=== PATIENT | male | born 1950 | race Caucasian/White ===

== ENCOUNTER → 2016-07-26 | Outpatient (CLI) | payer OTHER, BC ==
[~2016-07-26] MED LIST: ASPI81TA28 PO; CIPR1TAB10 PO; DOCU-94 PO; DVN/160 PO; OXYC7.5T65 PO; SIMV10TA2 PO; TAMS0.4C38 PO
[2016-07-26 12:36] LABS: ALT/SGPT 32 U/L (12-78); AST/SGOT 19 U/L (15-37); BLOOD UREA NITROGEN 15 mg/dl (7-18); BUN/CREATININE RATIO 14.9 (10-20); CALCIUM 8.9 mg/dl (8.5-10.1); CARBON DIOXIDE 31 mmol/L (21-32); CHLORIDE 108 mmol/L (98-107); CREATININE 0.99 mg/dl (0.60-1.40); GLUCOSE 97 mg/dl (70-99); POTASSIUM 4.4 mmol/L (3.5-5.1); SODIUM 144 mmol/L (136-145)
[2016-07-26 12:39] LABS: ALB/GLOB RATIO 1.2 (0.9-2); ALKALINE PHOSPHATASE 57 U/L (45-117); CHOLESTEROL 120 mg/dl (0-200); CHOLESTEROL/HDL RATIO 2.7; HDL CHOLESTEROL 45 mg/dl; LDL CHOLESTEROL CALCULATED 56 mg/dl; TRIGLYCERIDES 97 mg/dl (0-150); VERY LOW DENSITY LIPOPROT CALC 19 mg/dl
== END | disposition home or self-care (01) ==
LOC: C.LAB1850 10:35
PROVIDERS: ATTEND Family Medicine
DX: I10 Essential (primary) hypertension (principal); E78.00 Pure hypercholesterolemia, unspecified

== ENCOUNTER → 2017-01-08 | Outpatient (CLI) | payer OTHER, BC ==
[~2017-01-08] MED LIST changes: -CIPR1TAB10 PO; -DOCU-94 PO; -OXYC7.5T65 PO
== END | disposition home or self-care (01) ==
LOC: C.LAB1850 10:39
PROVIDERS: ATTEND Urology
DX: R97.20 Elevated prostate specific antigen [PSA] (principal); R07.89 Other chest pain

== ENCOUNTER 2017-01-14 11:18 | Inpatient (IN) | payer OTHER, BC ==
[~2017-01-14] VITALS: Ht 167.6 cm; Wt 81.1 kg
--- NOTE | 2017-01-14 12:07 | EMERGENCY ROOM VISIT NOTE ---
History Report prepared by Luis: Patricia Maki Under the Supervision of: Dr. Zeeshan Dang M.D. First contact with patient: 11:57 Chief Complaint: URINARY SYMPTOMS Stated Complaint: BLOOD IN URINE Nursing Triage Summary: pt reports noted blood in urine starting this AM with feeling of "fullnes " like [place] to empty bladder History of Present Illness The patient is a 66 year old male who presents to the Emergency Room with complaints of worsening urinary symptoms for the past 12 hours. The patient states that he initially developed some difficulty urinating around midnight. Around 4am he developed some hematuria. He passed a few small, round things in his stream prior to the hematuria starting. He states that these symptoms have significantly worsened. He reports increased urinary frequency and is now urinating every 15-20 minutes. His urine is bright red. The patient reports some pain and burning with urination. He rates his pain as a 4/10 in severity. He denies feeling full or distended. The patient denies fevers, chills, abdominal pain, and flank pain. He has never experienced symptoms like this before. He denies any history of UTIs or prostate infections. He does have an enlarged prostate. He had a normal biopsy last year. Source of History: patient Onset: 12 hours ago Position: other (urinary) Symptom Intensity: 4/10 Quality: other (hematuria) Timing: worsening Modifying Factors (Worsening): urination Associated Symptoms: No fevers, No chills, No abdominal pain Review of Systems All systems have been listed, reviewed, and are negative other than those previously mentioned. Please see Additional Medical History Sheet. Past Medical & Surgical Medical Problems: (1) Hematuria (2) Hypertension Family History Cancer Diabetes mellitus Heart disease Hypertension Social History Smoking Status: Never Smoker Smokeless Tobacco Use: No Alcohol Use: none Marital Status: Housing Status: lives with significant other Occupation Status: retired Current/Historical Medications Scheduled Aspirin (Aspirin Ec), 81 MG PO QPM Simvastatin (Zocor), 10 MG PO QPM Tamsulosin Hcl (Flomax), 0.4 MG PO after lunch Valsartan (Diovan), 160 MG PO QAM Allergies Coded Allergies: No Known Allergies (Verified , 01/14/17) Physical Exam Vital Signs Date Time Temp Pulse Resp B/P (MAP) Pulse Ox O2 Delivery O2 Flow Rate FiO2 01/14/17 16:28 58 145/79 97 Room Air 01/14/17 14:26 61 18 145/76 97 Room Air 01/14/17 12:49 66 18 152/79 96 Room Air 01/14/17 11:23 36.9 82 18 178/88 97 Room Air Physical Exam GENERAL: Patient awake, alert, oriented x 3. Patient follows commands. Patient appears to be in minimal distress. Patient does not appear toxic. Patient is adequately hydrated and well-nourished. SKIN: No erythema, pallor, cyanosis or rash HEENT: Normal head, pupils equal, reactive to light and accommodation. LUNGS: Clear to auscultation. No wheezes, no rales, no rhonchi. HEART: No murmurs. No gallops. No rubs ABDOMEN: No masses, no rebound, no hepatomegaly or splenomegaly. : Uncircumcised male, small amount of blood on his underwear. EXTREMITIES: No signs of trauma or infection NEUROLOGIC: Cranial nerves II-XII within normal limits. No gross motor sensory function deficits. Medical Decision & Procedures ER Provider Diagnostic Interpretation: Radiology results as stated below per my review and radiologist interpretation: ABD/PELVIS COMBO CLINICAL HISTORY: 66 years-old Male presenting with bladder stones, hematuria, NO oral contrast. TECHNIQUE: Multidetector CT of the abdomen and pelvis was performed before and after the administration of intravenous contrast. IV contrast: 93 mL of Optiray 320. A dose lowering technique was used consistent with the principles of ALARA (as low as reasonably achievable). COMPARISON: None. CT DOSE (mGy.cm): The estimated cumulative dose is 853.57 mGy.cm. FINDINGS: Manager Of Radiology topogram: Unremarkable. Lung bases: Minimal dependent changes likely atelectasis. Few tiny nodular opacities minimally in the right lower lobe may relate to atelectasis. Mild multichamber enlargement of the heart. No pericardial or pleural effusion. Liver: Normal morphology. No liver lesion. Patent hepatic vasculature. Biliary: No intrahepatic or extrahepatic biliary ductal dilatation. Normal gallbladder. Pancreas: Normal. Spleen: Normal. Adrenal glands: Normal. Kidneys and ureters: Large mass within the interpolar region of the right kidney measuring 8.6 x 6.4 cm in maximal axial dimensions. This displaces the collecting system and occupies the majority of the lower pole. This does not appear to infiltrate the perinephric fat. Allowing for the single phase of contrast, no gross evidence of vascular invasion. The mass effect exerted upon the right renal collecting system appears to somewhat delayed filling of the right ureter. The right ureter is normal in course and caliber. The left kidney is normal in appearance as is the left renal collecting system and left ureter. Bladder: Although under distended, the bladder is mildly thick-walled and irregular. Suggestion of a prominent diverticulum at the anterior dome. Pelvic organs: Prostate enlargement likely secondary to benign prostatic hyperplasia. Bowel: Diverticulosis of the descending and sigmoid colon. No bowel obstruction. Moderate size paraesophageal hernia. 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 No free intraperitoneal gas or fluid. Lymph nodes: No pathologically enlarged lymph nodes in the abdomen or pelvis. No prominent nodes in the region of the right renal hilum. Scattered subcentimeter small bowel mesenteric lymph nodes as mentioned. Vasculature: Atherosclerosis of the normal caliber abdominal aorta. IVC patent. Abdominal wall: Postsurgical changes of left inguinal hernia repair. Musculoskeletal: Sclerotic lesion in the right ischium and right femoral head likely bone islands. Degenerative changes of the spine noted. No destructive osseous lesion is apparent. IMPRESSION: 1. 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 Primary differential considerations include renal cell carcinoma versus transitional cell carcinoma. A urothelial primary malignancy such as TCC is favored given the displacement of the collecting system. No lymphadenopathy or evidence of metastatic disease in abdomen or pelvis. 2. Bladder wall irregularity with possible bladder diverticulum. Cystoscopy could be considered as clinically warranted. 3. Prostatomegaly. Electronically signed by: Denver Robert M.D. 01/14/2017 3:09 PM Dictated Date/Time: 01/14/2017 2:59 PM Laboratory Results 01/14/17 12:23 01/14/17 12:23 Test 01/14/17 12:23 01/14/17 13:05 Red Blood Count 5.17 M/uL (4.7-6.1) Mean Corpuscular Volume 87.8 fL (80-100) Mean Corpuscular Hemoglobin 29.4 pg (25-34) Mean Corpuscular Hemoglobin Concent 33.5 g/dl (32-36) RDW Standard Deviation 43.1 fL (36.4-46.3) RDW Coefficient of Variation 13.4 % (11.5-14.5) Mean Platelet Volume 10.2 fL (7.4-10.4) Anion Gap 6.0 mmol/L (3-11) Est Creatinine Clear Calc Drug Dose 71.7 ml/min Estimated GFR () 89.9 Estimated GFR (Non- 77.5 BUN/Creatinine Ratio 13.9 (10-20) Calcium Level 8.8 mg/dl (8.5-10.1) Urine Color RED Urine Appearance CLOUDY (CLEAR) Urine pH 7.5 (4.5-7.5) Urine Specific [place] 1.020 (1.000-1.030) Urine Protein 2+ (NEG) Urine Glucose (UA) NEG (NEG) Urine Ketones NEG (NEG) Urine Occult Blood 3+ (NEG) Urine Nitrite NEG (NEG) Urine Bilirubin NEG (NEG) Urine Urobilinogen NEG (NEG) Urine Leukocyte Esterase NEG (NEG) Urine RBC >30 /hpf (0-4) Urine WBC >30 /hpf (0-5) Urine Epithelial Cells 0-5 /lpf (0-5) Urine Bacteria NEG (NEG) Laboratory results as stated above per my review. Medications Administered Medications (Trade) Dose Ordered Sig/[place] Route Start Time Stop Time Status Last Admin Dose Admin Sodium Chloride 1,000 ml @ 300 mls/hr Q3H20M IV 01/14/17 13:15 01/14/17 17:19 DC 01/14/17 13:24 300 MLS/HR ED Course 1155: Past medical records reviewed. The patient was evaluated in room A4B. A complete history and physical examination was performed. 1310: I spoke with Dr. Dela Cruz of urology. We discussed the patient's case. 1315: Sodium Chloride 1000 ml @ 300 mls/hr IV. 1515: I spoke with Dr. Dela Cruz of urology. We discussed the patient's results. He recommended that the patient stay in the hospital. 1533: I reassessed the patient at this time. He is resting comfortably. I offered him pain medication, but the patient declined. I discussed the results and treatment plan with the patient. I answered all pertaining questions that he had. He expressed understanding and verbalized agreement. 1537: Sodium Chloride 1000 ml @ 300 mls/hr IV. 1540: Discussed the patient's case with Dr. Duran. The patient will be evaluated by the [facility] for further management. Medical Decision Nurses notes reviewed. Medical history sheet reviewed. Differential diagnosis includes but is not limited to: urinary retention, bladder stones, UTI, prostatitis. Multiple labs, urinalysis and imaging were obtained. Urinalysis reveals significant blood. CT reveals a large renal mass. I discussed care with the patient, his , the urologist and with the hospitalist. The patient will require further evaluation in the hospital and may require surgery within the next couple of days. The patient was offered pain medication but he declined. He was given IV fluids. He was kept nothing by mouth. Medication Reconcilliation Current Medication List: was personally reviewed by me Blood Pressure Screening Patient's blood pressure: Elevated blood pressure Blood pressure disposition: Elevated BP felt to be situational Consults Time Called: 1307 Consulting Physician: Dr. Dela Cruz Returned Call: [address] Dela Cruz of urology. We discussed the patient's case. Additional Consults: Time Called: 1511 Consulted Physician: Dr. Dela Cruz Returned Call: 1515 Additional Comments: I spoke with Dr. Dela Cruz of urology. We discussed the patient's results. He recommended that the patient stay in the hospital. Time Called: 1538 Consulted Physician: Dr. Duran Returned Call: 1540 Additional Comments: I discussed the patient's case with Dr. Duran. The patient will be evaluated by the [facility] for further management. Impression Primary Impression: Renal mass Additional Impression: Hematuria Scribe Attestation The scribe's documentation has been prepared under my direction and personally reviewed by me in its entirety. I confirm that the note above accurately reflects all work, treatment, procedures, and medical decision making performed by me. Departure Information Dispostion Being Evaluated By Hospitalist Referrals Noemy Santana M.D. (PCP) Patient Instructions My [facility] Problem Qualifiers
[2017-01-14 12:56] LABS: HEMATOCRIT 45.4 % (42-52); MEAN CELL VOLUME 87.8 fL (80-100); MEAN CORPUSCULAR HEMOGLOBIN 29.4 pg (25-34); MEAN CORPUSCULAR HGB CONC 33.5 g/dl (32-36); MEAN PLATELET VOLUME 10.2 fL (7.4-10.4); PLATELET COUNT 231 K/uL (130-400); RED BLOOD COUNT 5.17 M/uL (4.7-6.1); WHITE BLOOD COUNT 5.27 K/uL (4.8-10.8)
[2017-01-14] MEDS ORDERED: SODIUM CHLORIDE 0.9% 1000ML 1,000 ML IV SCH (13:15)
[2017-01-14 13:26] LABS: MANUAL MICROSCOPIC REQUIRED? YES; URINE APPEARANCE CLOUDY (CLEAR); URINE BILIRUBIN NEG (NEG); URINE COLOR RED; URINE NITRITE NEG (NEG); URINE PH 7.5 (4.5-7.5); UROBILINOGEN NEG (NEG)
[2017-01-14 13:29] LABS: REVIEW REQ? NO
[2017-01-14 13:30] LABS: SULFASALICYLIC ACID POS (NEG)
[2017-01-14] MEDS ORDERED: OPTIRAY 320 IV PRN (13:30)
[2017-01-14 13:34] LABS: URINE RBC >30 /hpf (0-4)
[2017-01-14 13:35] LABS: URINE BACTERIA NEG (NEG)
[2017-01-14 13:36] LABS: URINE WBC >30 /hpf (0-5); ZZUR CULT IF INDIC CLEAN CATCH YES
[2017-01-14 13:40] LABS: BUN/CREATININE RATIO 13.9 (10-20); CALCIUM 8.8 mg/dl (8.5-10.1); POTASSIUM 3.9 mmol/L (3.5-5.1)
--- NOTE | 2017-01-14 15:10 | DIAGNOSTIC IMAGING REPORT ---
ABD/PELVIS COMBO CLINICAL HISTORY: 66 years-old Male presenting with bladder stones, hematuria, NO oral contrast. TECHNIQUE: Multidetector CT of the abdomen and pelvis was performed before and after the administration of intravenous contrast. IV contrast: 93 mL of Optiray 320. A dose lowering technique was used consistent with the principles of ALARA (as low as reasonably achievable). COMPARISON: None. CT DOSE (mGy.cm): The estimated cumulative dose is 853.57 mGy.cm. FINDINGS: Transmission Repairer topogram: Unremarkable. Lung bases: Minimal dependent changes likely atelectasis. Few tiny nodular opacities minimally in the right lower lobe may relate to atelectasis. Mild multichamber enlargement of the heart. No pericardial or pleural effusion. Liver: Normal morphology. No liver lesion. Patent hepatic vasculature. Biliary: No intrahepatic or extrahepatic biliary ductal dilatation. Normal gallbladder. Pancreas: Normal. Spleen: Normal. Adrenal glands: Normal. Kidneys and ureters: Large mass within the interpolar region of the right kidney measuring 8.6 x 6.4 cm in maximal axial dimensions. This displaces the collecting system and occupies the majority of the lower pole. This does not appear to infiltrate the perinephric fat. Allowing for the single phase of contrast, no gross evidence of vascular invasion. The mass effect exerted upon the right renal collecting system appears to somewhat delayed filling of the right ureter. The right ureter is normal in course and caliber. The left kidney is normal in appearance as is the left renal collecting system and left ureter. Bladder: Although under distended, the bladder is mildly thick-walled and irregular. Suggestion of a prominent diverticulum at the anterior dome. Pelvic organs: Prostate enlargement likely secondary to benign prostatic hyperplasia. Bowel: Diverticulosis of the descending and sigmoid colon. No bowel obstruction. Moderate size paraesophageal hernia. 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 No free intraperitoneal gas or fluid. Lymph nodes: No pathologically enlarged lymph nodes in the abdomen or pelvis. No prominent nodes in the region of the right renal hilum. Scattered subcentimeter small bowel mesenteric lymph nodes as mentioned. Vasculature: Atherosclerosis of the normal caliber abdominal aorta. IVC patent. Abdominal wall: Postsurgical changes of left inguinal hernia repair. Musculoskeletal: Sclerotic lesion in the right ischium and right femoral head likely bone islands. Degenerative changes of the spine noted. No destructive osseous lesion is apparent. IMPRESSION: 1. 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 Primary differential considerations include renal cell carcinoma versus transitional cell carcinoma. A urothelial primary malignancy such as TCC is favored given the displacement of the collecting system. No lymphadenopathy or evidence of metastatic disease in abdomen or pelvis. 2. Bladder wall irregularity with possible bladder diverticulum. Cystoscopy could be considered as clinically warranted. 3. Prostatomegaly. Electronically signed by: Denver Robert M.D. 01/14/2017 3:09 PM Dictated Date/Time: 01/14/2017 2:59 PM
[2017-01-14] MEDS ORDERED: SODIUM CHLORIDE 0.9% 1000ML 1,000 ML IV STA (15:37)
[2017-01-14] MEDS ORDERED: ACETAMINOPHEN 325 MG TAB PO PRN (16:30)
[2017-01-14] MEDS ORDERED: MAGNESIUM HYDROXIDE SUSP 30 ML UDC PO PRN (16:30)
[2017-01-14] MEDS ORDERED: ONDANSETRON INJ 2 MG/ML 2 ML VIAL IV PRN (16:30)
--- NOTE | 2017-01-14 16:38 | History and Physical ---
History & Physical Date & Time of Service: Jan 14, 2017 at 16:29 Chief Complaint: Blood In Urine Primary Care Physician: Noemy Santana M.D. History of Present Illness Source: patient 66 y/o M c/o hematuria. Pt states he has been having the sensation of a "blockage" when he tried to urinate on and off for a few weeks. Initially, he would have this sensation for a 1/2 day or so and then not again for a few days , however it has been pretty much a regular occurrence with all urination over the last few days. He woke up to urinate around 4am this AM and noted nazia blood in his urine, which has never happened before. He also noted a sharp pain that becomes an ache with urination only. He feels fine between urination times, however over the course of the day he finds he has had to urinate about Q15-20 minutes. He has no abd or pelvic or flank pain. Pt has no hx of kidney stone, but initially thought that was what was going on based on how he was feeling. Pt states that otherwise he feels fine. Pt denies fever, SOB, chest pain, n/v/c /d, LE pain or swelling. He does note the for the last six months or so he has had sudden bowel movements with hot/warm foods. He states he eats a cold breakfast and a sandwich for lunch and has no issue, but with dinner he notes that after he eats he must have a bowel movement shortly after. If they are at a restaurant, it is before they even leave. Stools are sometimes diarrhea but usually just "loose". He states his appetite is WNL and no weight loss or gain. Pt does take aspirin 81mg daily, but last dose was 10/7 AM. Past Medical/Surgical History Medical Problems: (1) Hypertension Status: Chronic Hyperlipidemia BPH Family History Family history was reviewed; no changes noted. Father from CHF Mother from ovarian ca with mets Social History Smoking Status: Never Smoker Smokeless Tobacco Use: No Alcohol Use: none Drug Use: none Marital Status: Occupational Status: retired Allergies Coded Allergies: No Known Allergies (Verified , 01/14/17) Home Medications Scheduled Aspirin (Aspirin Ec), 81 MG PO QPM Simvastatin (Zocor), 10 MG PO QPM Tamsulosin Hcl (Flomax), 0.4 MG PO after lunch Valsartan (Diovan), 160 MG PO QAM Review of Systems Pertinent positives and negatives reviewed in HPI--all others negative Physical Exam Vital Signs Date Time Temp Pulse Resp B/P (MAP) Pulse Ox O2 Delivery O2 Flow Rate FiO2 01/14/17 14:26 61 18 145/76 97 Room Air 01/14/17 12:49 66 18 152/79 96 Room Air 01/14/17 11:23 36.9 82 18 178/88 97 Room Air General Appearance: WD/WN, no apparent distress Head: normocephalic, atraumatic Eyes: normal inspection, EOMI ENT: hearing grossly normal Neck: supple Respiratory/Chest: normal breath sounds, no respiratory distress Cardiovascular: regular rate, rhythm, no edema Abdomen/GI: non tender, soft, + distended Extremities/Musculoskelatal: no calf tenderness, no pedal edema Neurologic/Psych: alert, normal mood/affect, oriented x 3 Skin: normal color, warm/dry Diagnostics Laboratory Results Results Past 24 Hours Test 01/14/17 12:23 01/14/17 13:05 Range/Units White Blood Count 5.27 4.8-10.8 K/uL Red Blood Count 5.17 4.7-6.1 M/uL Hemoglobin 15.2 14.0-18.0 g/dL Hematocrit 45.4 42-52 % Mean Corpuscular Volume 87.8 80-100 fL Mean Corpuscular Hemoglobin 29.4 25-34 pg Mean Corpuscular Hemoglobin Concent 33.5 32-36 g/dl RDW Standard Deviation 43.1 36.4-46.3 fL RDW Coefficient of Variation 13.4 11.5-14.5 % Platelet Count 231 130-400 K/uL Mean Platelet Volume 10.2 7.4-10.4 fL Sodium Level 144 136-145 mmol/L Potassium Level 3.9 3.5-5.1 mmol/L Chloride Level 110 98-107 mmol/L Carbon Dioxide Level 28 21-32 mmol/L Anion Gap 6.0 3-11 mmol/L Blood Urea Nitrogen 14 7-18 mg/dl Creatinine 1.00 0.60-1.40 mg/dl Est Creatinine Clear Calc Drug Dose 71.7 ml/min Estimated GFR () 89.9 Estimated GFR (Non- 77.5 BUN/Creatinine Ratio 13.9 10-20 Random Glucose 114 70-99 mg/dl Calcium Level 8.8 8.5-10.1 mg/dl Urine Color RED Urine Appearance CLOUDY CLEAR Urine pH 7.5 4.5-7.5 Urine Specific [place] 1.020 1.000-1.030 Urine Protein 2+ NEG Urine Glucose (UA) NEG NEG Urine Ketones NEG NEG Urine Occult Blood 3+ NEG Urine Nitrite NEG NEG Urine Bilirubin NEG NEG Urine Urobilinogen NEG NEG Urine Leukocyte Esterase NEG NEG Urine RBC >30 0-4 /hpf Urine WBC >30 0-5 /hpf Urine Epithelial Cells 0-5 0-5 /lpf Urine Bacteria NEG NEG Microbiology Results 01/14/17 Urine Culture, Received Pending Diagnostic Radiology CT AP: 1. 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 Primary differential considerations include renal cell carcinoma versus transitional cell carcinoma. A urothelial primary malignancy such as TCC is favored given the displacement of the collecting system. No lymphadenopathy or evidence of metastatic disease in abdomen or pelvis. 2. Bladder wall irregularity with possible bladder diverticulum. Cystoscopy could be considered as clinically warranted. 3. Prostatomegaly. Impression Assessment and Plan 66 y/o M who was admitted on 01/14 for gross hematuria Gross hematuria/dysuria: UA neg for UTI, but with 3+ blood CT AP as noted with concerning mass Dr. Dela Cruz in to see pt in the ED and planning for OR Urine cx pending CBC, PRP WNL Hb 15.2 HTN: stable, continue home meds CAD prevention: holding aspirin Last dose was 10/7 AM BPH: holding flomax given increase in urinary frequency Hyperlipidemia: continue home meds Other: Full code NPO for possible OR per urology SCDs for DVT proph given hematuria Level of Care Med/Surg Resuscitation Status FULL RESUSCITATION VTE Prophylaxis VTE Risk Assessment Done? Y/N: Yes Risk Level: Low
[2017-01-14 17:16] VITALS: BP 153/87; PULSE 72; TEMP 36.6; O2SAT 94
[2017-01-14] MEDS: D5W AND 1/2NSS + 20MEQ KCL 1,000 ML IV SCH (17:30)
[2017-01-14] MEDS ORDERED: PHENAZOPYRIDINE HCL 200 MG TAB PO ONE ×2 (18:30→21:00)
[2017-01-14 18:57] VITALS: BP 153/87; PULSE 72; TEMP 36.6; Ht 167.6 cm; Wt 81.1 kg
[2017-01-14] MEDS ORDERED: NURSING DECISION MEDICATION ORDER SCH (19:00)
--- NOTE | 2017-01-14 19:29 | DIAGNOSTIC IMAGING REPORT ---
CHEST 2 VIEWS ROUTINE CLINICAL HISTORY: 66 years-old Male presenting with preop assessment. TECHNIQUE: PA and lateral views of the chest were obtained. COMPARISON: None. FINDINGS: Cardiomediastinal silhouette normal. Lungs and pleural spaces clear. Osseous structures normal. Upper abdomen normal. IMPRESSION: 1. No acute cardiopulmonary disease. Electronically signed by: Denver Robert M.D. 01/14/2017 7:28 PM Dictated Date/Time: 01/14/2017 7:27 PM
[2017-01-14] MEDS ORDERED: NURSING VERBAL MED ORDER ONE (19:45)
[2017-01-14] MEDS: SIMVASTATIN 10 MG TAB PO SCH (21:41)
[2017-01-14] MEDS: CIPROFLOXACIN / D5W 400 MG in PREMIXED IN D5W 200 ML IV SCH (21:42)
--- NOTE | 2017-01-14 23:33 | GENITOURINARY CONSULTATION ---
DATE OF CONSULTATION: 01/14/2017 REASON FOR THE CONSULT: Gross hematuria and right renal mass. HISTORY OF PRESENTATION: The patient is a 66-year-old male who called early this morning saying that he at midnight began to have some difficulty with urinary frequency. This frequency was initially clear urine but then turned into hematuria. He was voiding every 15 minutes throughout the night, presented to the Emergency Room at my recommendation. There, an attempt was made to catheterize him even though he had only a small amount on bladder scan in his bladder, it was unsuccessful by the nurse. I went in to evaluate the patient. Because he had a small amount and seemed to be able to empty but was voiding, gross hematuria, this was sent for urinalysis. Subsequently, a CAT scan was obtained which showed a right renal mass. It is unclear, because it is medial, whether this is a renal cell or transitional cell, but given the size of it, it seems unlikely that it would be a transitional cell without previously having caused hematuria. This appears to be 8-9 cm in size. There are bladder stones and the patient had also said that he had passed some bladder stones over the last few weeks. He does have a history of BPH and has been followed by Dr. Moise in the past. He continues to have hematuria. At my recommendation, he was admitted to the hospital by the hospitalist and I placed him on a schedule tomorrow for cystoscopy, possible transurethral incision of his stricture, possible retrograde and to see whether or not fluid might be obtained from the right renal pelvis to rule out or rule in transitional cell cancer. PAST MEDICAL HISTORY: Significant for hypertension, hyperlipidemia and BPH. SOCIAL HISTORY: The patient has never been a smoker, does not use alcohol. ALLERGIES: He has no known drug allergies. MEDICATIONS: Include aspirin, Zocor, Flomax and Diovan. REVIEW OF SYSTEMS: Essentially negative. The positives were reviewed in the history and physical. The patient denies any flank pain. He did have previous flecks of hematuria in the past. PHYSICAL EXAMINATION: GENERAL: The patient is a well-developed male in minimal distress. HEENT: Unremarkable. NECK: Supple without obvious lymphadenopathy. LUNGS: He has normal breath sounds. No obvious respiratory distress. CARDIOVASCULAR: He has no evidence of pedal edema. He has a regular rate and rhythm. ABDOMEN: Nontender. EXTREMITIES: Unremarkable without evidence of calf tenderness. NEUROLOGIC: He is alert and oriented without any focal sensory deficits. SKIN: Dry. LABORATORY DATA: Grossly bloody urine with some white cells in it, no evidence of bacteria. White blood cell count is normal at 5.7, hematocrit is 45.4. Creatinine was within normal limits at 1. Again, CT scan did show bladder stones and enlarged prostate, a somewhat irregular bladder but no obvious mass, an 8-9 cm right renal mass that was medial and distorting the collecting system, in my opinion probably renal cell carcinoma but cannot rule out renal transitional cell cancer. ASSESSMENT: Right renal mass, gross hematuria with voiding difficulty and bladder stones, possible stricture given the difficulty with catheterization attempt. PLAN: Admission for workup in the morning with cystoscopy, possible incision of stricture, removal of bladder stones and right retrograde. He will need to ultimately be evaluated for a right nephrectomy. Chest x-ray and preop EKG are pending. A consent for the procedure was obtained. All questions were answered and the situation including the renal mass was explained at length to the patient. Over 45 minutes were spent in total discussing the situation with the patient.
[2017-01-14 23:36] VITALS: BP 143/75; PULSE 64; TEMP 36.7; O2SAT 95
[2017-01-15] VITALS (8 sets, daily range): BP systolic 116–166; BP diastolic 67–93; PULSE 64–70; TEMP 36.4–36.9; O2SAT 94–97
[2017-01-15 05:34] LABS: HEMATOCRIT 41.2 % (42-52); MEAN CELL VOLUME 87.7 fL (80-100); MEAN CORPUSCULAR HEMOGLOBIN 28.9 pg (25-34); MEAN PLATELET VOLUME 10.2 fL (7.4-10.4); PLATELET COUNT 205 K/uL (130-400); WHITE BLOOD COUNT 6.65 K/uL (4.8-10.8)
--- NOTE | 2017-01-15 07:45 | Progress Note ---
Subjective Date of Service: Jan 15, 2017. Subjective Pt evaluation today including: conversation w/ patient, chart review, lab review 66 yo male with renal mass, bladder calculi, and gross hematuria. Pt voiding bright clarke colored urine this morning. Denies pain. H&H of 13.6 and 41.2 this morning. Drifting down from 15.2 and 45.4 yesterday. UC&S pending. Problem List Medical Problems: (1) Renal mass Status: Acute Review of Systems Constitutional: No fever, No chills Respiratory: No shortness of breath Cardiac: No chest pain Abdomen: No pain, No vomiting Male : + hematuria Objective Vital Signs Date Time Temp Pulse Resp B/P (MAP) Pulse Ox O2 Delivery O2 Flow Rate FiO2 01/15/17 07:02 36.9 65 16 155/77 (103) 95 Room Air 01/15/17 00:15 Room Air 01/14/17 23:36 36.7 64 16 143/75 (97) 95 Room Air 01/14/17 18:57 36.6 72 16 153/87 Room Air 01/14/17 18:00 Room Air 01/14/17 17:16 36.6 72 16 153/87 (109) 94 Room Air 01/14/17 17:01 58 18 145/79 97 01/14/17 16:28 58 145/79 97 Room Air 01/14/17 14:26 61 18 145/76 97 Room Air 01/14/17 12:49 66 18 152/79 96 Room Air 01/14/17 11:23 36.9 82 18 178/88 97 Room Air Physical Exam General Appearance: no apparent distress Eyes: normal inspection ENT: hearing grossly normal Neck: no JVD Respiratory/Chest: no respiratory distress, no accessory muscle use Cardiovascular: no JVD Extremities: normal inspection Neurologic/Psychiatric: alert, normal mood/affect, oriented x 3 Skin: normal color Laboratory Results Last 24 Hours Test 01/14/17 12:23 01/14/17 13:05 01/15/17 05:20 White Blood Count 5.27 K/uL 6.65 K/uL Red Blood Count 5.17 M/uL 4.70 M/uL Hemoglobin 15.2 g/dL 13.6 g/dL Hematocrit 45.4 % 41.2 % Mean Corpuscular Volume 87.8 fL 87.7 fL Mean Corpuscular Hemoglobin 29.4 pg 28.9 pg Mean Corpuscular Hemoglobin Concent 33.5 g/dl 33.0 g/dl RDW Standard Deviation 43.1 fL 43.4 fL RDW Coefficient of Variation 13.4 % 13.5 % Platelet Count 231 K/uL 205 K/uL Mean Platelet Volume 10.2 fL 10.2 fL Sodium Level 144 mmol/L Potassium Level 3.9 mmol/L Chloride Level 110 mmol/L Carbon Dioxide Level 28 mmol/L Anion Gap 6.0 mmol/L Blood Urea Nitrogen 14 mg/dl Creatinine 1.00 mg/dl Est Creatinine Clear Calc Drug Dose 71.7 ml/min Estimated GFR () 89.9 Estimated GFR (Non- 77.5 BUN/Creatinine Ratio 13.9 Random Glucose 114 mg/dl Calcium Level 8.8 mg/dl Urine Color RED Urine Appearance CLOUDY Urine pH 7.5 Urine Specific [place] 1.020 Urine Protein 2+ Urine Glucose (UA) NEG Urine Ketones NEG Urine Occult Blood 3+ Urine Nitrite NEG Urine Bilirubin NEG Urine Urobilinogen NEG Urine Leukocyte Esterase NEG Urine RBC >30 /hpf Urine WBC >30 /hpf Urine Epithelial Cells 0-5 /lpf Urine Bacteria NEG Assessment and Plan A/P: Right renal mass, gross hematuria, bladder calculi AFVSS. Pt scheduled for OR later today with Dr. Moise for a cystoscopy, possible incision of stricture, cystolithopaxy, and right retrograde to evaluate right renal mass. Risks and benefits of the procedure once again discussed. Consent obtained by Dr. Dela Cruz. Pt agrees to the procedure at this time. Will continue to follow along with primary service. Continued [facility] stay due to: other (OR planned)
--- NOTE | 2017-01-15 08:08 | Clinical Documentation Query ---
CLINICAL DOCUMENTATION QUERY 66 year old male who presents to the Emergency Room with complaints of hematuria In your clinical opinion is this patient being managed for: ( x ) Suspected Malignant Mass(Cancer) of right Kidney ( ) Not Agree ( ) Other explanation of clinical findings (Please Explain) ( ) Unable to determine (Please Define) ( ) Need to Discuss The medical record reflects the following clinical findings, treatment, and risk factors. Clinical Indicators: Hematuria. 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 Primary differential considerations include renal cell carcinoma versus transitional cell carcinoma. A urothelial primary malignancy such as TCC is favored given the displacement of the collecting system. No lymphadenopathy or evidence of metastatic disease in abdomen or pelvis. Treatment: Urology consult, Risk Factors: Age Please clarify and document your clinical opinion in the progress notes and discharge summary. Terms such as "probable", "suspected", "likely", "questionable", "possible", or "still to be ruled out" are acceptable. IF IN AGREEMENT, YOU MUST DOCUMENT ABOVE DIAGNOSTIC STATEMENT IN DAILY PROGRESS NOTES AND DISCHARGE SUMMARY. This document is not part of the patient's record. Thank You, Silas Valdovinos, ANKIT [phone]
[2017-01-15] MEDS ORDERED: EpHEDrine SULFATE INJ 50 MG/ML AMP IV PRN ×2 (08:45)
[2017-01-15] MEDS ORDERED: LABETALOL HCL IV 5 MG/ML 20ML IV PRN (08:45)
[2017-01-15] MEDS ORDERED: ONDANSETRON INJ 2 MG/ML 2 ML VIAL IV PRN (08:45)
[2017-01-15] MEDS ORDERED: FENTANYL CITRATE INJ 50 MCG/1 ML 2 ML VIAL IV PRN (08:45)
[2017-01-15] MEDS ORDERED: MEPERIDINE HCL 25 MG/ML CARP IV PRN (08:45)
[2017-01-15] MEDS ORDERED: ATROPINE SULFATE 0.1 MG/ML 5ML SYR IV PRN ×2 (08:45)
[2017-01-15] MEDS ORDERED: HYDROmorphone INJ 1 MG/ML SYR IV PRN (08:45)
[2017-01-15] MEDS ORDERED: FENTANYL CITRATE INJ 50 MCG/1 ML 2 ML VIAL ONE (08:54)
[2017-01-15] MEDS ORDERED: MIDAZOLAM HCL 1 MG/ML 2ML VIAL ONE (08:54)
[2017-01-15] MEDS: CIPROFLOXACIN / D5W 400 MG in PREMIXED IN D5W 200 ML IV SCH (08:59)
[2017-01-15] MEDS: VALSARTAN 80 MG TAB PO SCH (09:00)
--- NOTE | 2017-01-15 09:47 | History & Physical Bridge Note ---
H&P Re-Evaluation Bridge Note: I have examined the patient, reviewed the History & Physical and in the interval since the performance of the History & Physical I have noted the following changes of clinical significance: No changes noted
[2017-01-15] MEDS ORDERED: CONRAY 30% 150ML BOTTLE ONE (10:33)
[2017-01-15] MEDS ORDERED: PROPOFOL IV EMULSION 10 MG/ML 20 ML VIAL IV ONE (10:52)
[2017-01-15] MEDS ORDERED: LIDOCAINE HCL 2% 2 ML VIAL (20MG/ML) ONE (10:52)
[2017-01-15] MEDS ORDERED: EpHEDrine SULFATE 50MG/5ML SYR ONE (11:00)
[2017-01-15 11:01] LABS: BUN/CREATININE RATIO 12.1 (10-20); CALCIUM 9.6 mg/dl (8.5-10.1)
--- NOTE | 2017-01-15 11:21 | DIAGNOSTIC IMAGING REPORT ---
R KUB CLINICAL HISTORY: RT STENT PLACEMENT COMPARISON STUDY: CT scan dated 01/14/2017 FINDINGS: 42 seconds of fluoroscopic time was utilized. 2 intraoperative fluoroscopic spot images are provided for interpretation. These demonstrate a dilated deformed right-sided collecting system. The findings are consistent with the patient's known large right renal mass. IMPRESSION: Dilated deformed right renal collecting system. Electronically signed by: Harjit Charles M.D. 01/15/2017 11:19 AM Dictated Date/Time: 01/15/2017 11:18 AM
[2017-01-15] MEDS ORDERED: OXYCODONE/ACETAMINOPHEN 5-325 TAB PO PRN (11:45)
--- NOTE | 2017-01-15 11:55 | [facility] Operative Report ---
Operative Report Operative Date Jan 15, 2017. Pre-Operative Diagnosis Renal Mass; Bladder Stones Post-Operative Diagnosis Same Procedure(s) Performed Cystoscopy, cystolithalopaxy, Right retrograde and barbataged right renal pelvis Surgeon Jose Maria [employer] Service Technician Surgeon(s) none Estimated Blood Loss 0ml Findings Cystoscopic exam revealed a normal anterior urethra prostatic fossa was moderately obstructing per milliliter with an elevated median lobe bladder showed one plus trabeculation there was some adherent clot in the bladder and multiple small bladder stones there were no bladder tumors seen. Right retrograde showed a large mass distorting the collecting system Specimens a. barbataged right kidney b. bladder stones for stone analysis Drains none Anesthesia Gen. Disposition Recovery Room / PACU Indications Patient is a 76-year-old white male who was admitted through the emergency room with hematuria and bladder pain workup revealed an 8 cm right renal mass as well as multiple bladder stones. They were unable to pass a Torres on the floor. Patient is being brought down now for cystoscopy retrogrades barbotaged urine from the right kidney removal of bladder stones Description of Procedure After the induction of an adequate general anesthetic and appropriate timeout patient was placed in a dorsal lithotomy position. Lower abdomen and genitalia were prepped with Hibiclens and draped in a sterile fashion. Using a 22 Hungarian cystoscope routine cystoscopic exam was performed with the above-noted findings with the 30 and 70 lenses then a 0.03 guidewire was passed under fluoroscopic guidance up the right ureter and over this a 5 Hungarian open-ended catheter was passed up into the renal pelvis confirmed by fluoroscopy barbotage urine was obtained using normal saline. The catheter was then backed out and a right retrograde pyelogram was performed again with the above-noted findings. After completing this the catheter was removed the cystoscope was removed and a 24 Hungarian resection sheath and laser bridge were inserted most of the stones are small enough that I could irrigate them out there was one larger stone that had to be fragmented with the laser. EllHemp 4 [place] evacuator was used to remove all bladder stone fragments. The laser scope was removed and the cystoscope was again passed bladder was inspected with the 30 and 70 lenses there were no stone fragments remaining and there was no bleeding. Bladder was then drained and cystoscope and sheath removed all needle sponges and instrument counts are correct at the end of the case. Patient tolerated the procedure well and taken to the recovery room in stable condition I attest to the content of the Intraoperative Record and any orders documented therein. Any exceptions are noted below.
--- NOTE | 2017-01-15 12:08 | Anesthesiology Progress Note ---
Anesthesia Post Op Note Date & Time Jan 15, 2017 at 12:07 Vital Signs Pain Intensity: 0 Vital Signs Past 12 Hours Date Time Temp Pulse Resp B/P (MAP) Pulse Ox O2 Delivery O2 Flow Rate FiO2 01/15/17 12:02 86 15 01/15/17 12:02 87 15 96 01/15/17 12:01 142/72 01/15/17 11:57 64 15 01/15/17 11:57 65 15 99 01/15/17 11:56 127/73 01/15/17 11:52 83 16 01/15/17 11:52 85 16 98 01/15/17 11:51 137/78 01/15/17 11:47 71 18 98 01/15/17 11:47 72 18 01/15/17 11:46 128/83 01/15/17 11:42 75 21 01/15/17 11:42 75 21 99 01/15/17 11:41 142/91 01/15/17 11:38 131/80 01/15/17 11:37 36.4 83 12 131/80 98 Oxymask 10 01/15/17 11:37 87 16 97 01/15/17 11:37 83 16 01/15/17 10:13 Room Air 01/15/17 07:02 36.9 65 16 155/77 (103) 95 Room Air 01/15/17 00:15 Room Air Notes Mental Status: alert / awake / arousable, participated in evaluation Pt Amnestic to Procedure: Yes Nausea / Vomiting: adequately controlled Pain: adequately controlled Airway Patency, RR, SpO2: stable & adequate BP & HR: stable & adequate Hydration State: stable & adequate Anesthetic Complications: no major complications apparent
[2017-01-15] MEDS: D5W AND 1/2NSS + 20MEQ KCL 1,000 ML IV SCH (12:50)
--- NOTE | 2017-01-15 16:23 | Hospitalist Progress Note ---
Hospitalist Progress Note Date of Service Jan 15, 2017. (Madison Pastor ., BENNETT-C) Subjective Pt evaluation today including: conversation w/ patient, physical exam, chart review, lab review, review of inpatient medication list Pain: 8/10 lower abdominal and lower back pressure PO Intake: Tolerating PO diet Voiding: voiding difficulty (unable to void post op) Patient complains of 8/10 pressure in his lower abdomen and lower back. He states he has not been able to void since coming back from his procedure earlier today. He has been draining some blood from his urethra. The patient denies fevers, chills, sweats, chest pain, palpitations, claudication, cough, wheezing, shortness of breath, nausea, vomiting, dysuria, paralysis, weakness, numbness and tingling. Additional Comments: See HPI for pertinent positives and negatives. All other systems reviewed and negative. (Madison Pastor ., PA-C) Objective Vital Signs Date Time Temp Pulse Resp B/P (MAP) Pulse Ox O2 Delivery O2 Flow Rate FiO2 01/15/17 15:43 36.7 64 18 147/69 (95) 94 Room Air 01/15/17 14:37 67 16 166/90 (115) 97 Room Air 01/15/17 13:38 70 16 165/81 (109) 96 Room Air 01/15/17 13:12 70 16 165/93 (117) 96 Room Air 01/15/17 12:40 36.4 68 16 166/77 (106) 97 Room Air 01/15/17 12:40 97 Room Air 01/15/17 12:21 132/85 01/15/17 12:19 76 17 01/15/17 12:19 79 17 93 01/15/17 12:16 129/80 01/15/17 12:15 36.7 01/15/17 12:14 79 17 01/15/17 12:14 79 17 94 01/15/17 12:13 68 15 96 01/15/17 12:13 68 15 01/15/17 12:11 128/76 01/15/17 12:08 68 19 95 01/15/17 12:08 69 19 01/15/17 12:06 143/83 01/15/17 12:03 69 12 01/15/17 12:03 69 12 95 01/15/17 12:02 86 15 01/15/17 12:02 87 15 96 01/15/17 12:01 142/72 01/15/17 11:57 64 15 01/15/17 11:57 65 15 99 01/15/17 11:56 127/73 01/15/17 11:52 83 16 01/15/17 11:52 85 16 98 01/15/17 11:51 137/78 01/15/17 11:47 71 18 98 01/15/17 11:47 72 18 01/15/17 11:46 128/83 01/15/17 11:42 75 21 01/15/17 11:42 75 21 99 01/15/17 11:41 142/91 01/15/17 11:38 131/80 01/15/17 11:37 36.4 83 12 131/80 98 Oxymask 10 01/15/17 11:37 87 16 97 01/15/17 11:37 83 16 01/15/17 10:13 Room Air 01/15/17 07:02 36.9 65 16 155/77 (103) 95 Room Air 01/15/17 00:15 Room Air 01/14/17 23:36 36.7 64 16 143/75 (97) 95 Room Air 01/14/17 18:57 36.6 72 16 153/87 Room Air 01/14/17 18:00 Room Air 01/14/17 17:16 36.6 72 16 153/87 (109) 94 Room Air 01/14/17 17:01 58 18 145/79 97 01/14/17 16:28 58 145/79 97 Room Air (Madison Pastor, PA-C) Physical Exam Notes: General appearance: +Mild distress secondary to pain. Well-developed, well- nourished Head: Normocephalic, atraumatic Eyes: Normal inspection, PERRL, EOMI ENT: Normal ENT inspection, hearing grossly normal, pharynx normal Neck: Supple, no JVD, trachea midline Respiratory/Chest: Lungs clear to auscultation, normal breath sounds, no respiratory distress Cardiovascular: Regular rate & rhythm, no gallop, no murmur Abdomen/GI: +Distended. Lower quadrants TTP. Normal bowel sounds Extremities/Musculoskeletal: Normal inspection, no calf tenderness, no pedal edema Neurological/Psych: Alert, normal mood/affect, oriented x 3 Skin: Normal color, warm/dry, no rash (Madison Pastor ., BENNETT-C) Laboratory Results Last 24 Hours Test 01/15/17 00:00 01/15/17 05:20 01/15/17 09:05 White Blood Count 6.65 K/uL Red Blood Count 4.70 M/uL Hemoglobin 13.6 g/dL Hematocrit 41.2 % Mean Corpuscular Volume 87.7 fL Mean Corpuscular Hemoglobin 28.9 pg Mean Corpuscular Hemoglobin Concent 33.0 g/dl RDW Standard Deviation 43.4 fL RDW Coefficient of Variation 13.5 % Platelet Count 205 K/uL Mean Platelet Volume 10.2 fL Sodium Level 141 mmol/L Potassium Level 4.0 mmol/L Chloride Level 109 mmol/L Carbon Dioxide Level 24 mmol/L Anion Gap 7.0 mmol/L Blood Urea Nitrogen 12 mg/dl Creatinine 1.00 mg/dl Est Creatinine Clear Calc Drug Dose 71.7 ml/min Estimated GFR () 89.9 Estimated GFR (Non- 77.5 BUN/Creatinine Ratio 12.1 Random Glucose 113 mg/dl Calcium Level 9.6 mg/dl (Madison Pastor ., PA-C) Assessment and Plan 66 y/o male who was admitted on 01/14 for gross hematuria. Gross hematuria/dysuria--ongoing -Admit to med/surg -UA neg for UTI, but with 3+ blood -Urine culture pinpoint growth, reincubating -CT A/P concerning for suspected malignant mass on right kidney -Renal biopsy pending -Urology consulted, appreciate recs: Taken for cystoscopy, cystolitholapaxy, right retrograde and barbataged right renal pelvis. Bladder stones removed -Hgb dropped to 13.6 from 15.2 -Pt w/urinary retention and bladder pressure post procedure. Bladder scan with 502 cc. Urology paged, ordered Torres catheter to be inserted -Per nursing, Torres placed with return of hematuria and blood clots -Continue Cipro 400 mg IV BID. Day # 2 HTN--stable -Continue valsartan 160 mg PO qd CAD -Hold ASA BPH -Flomax held on admission Hyperlipidemia -Continue Zocor 10 mg PO qd DVT prophylaxis -SCDs Code Status -Level I, FULL RESUSCITATION STATUS (Madison Pastor, PA-C) I examined patient and discussed plan of care with the APC and patient. My exam did not differ from the exam documented by the APC. I agree with above note. (Juan J Lawrence M.D.)
[2017-01-15] MEDS: SIMVASTATIN 10 MG TAB PO SCH (20:30)
[2017-01-16 04:05] VITALS: BP 121/73; PULSE 74; TEMP 36.5; O2SAT 94
[2017-01-16 07:38] LABS: HEMATOCRIT 41.3 % (42-52); MEAN CELL VOLUME 87.7 fL (80-100); MEAN CORPUSCULAR HEMOGLOBIN 29.3 pg (25-34); MEAN CORPUSCULAR HGB CONC 33.4 g/dl (32-36); MEAN PLATELET VOLUME 10.2 fL (7.4-10.4); PLATELET COUNT 199 K/uL (130-400); RED BLOOD COUNT 4.71 M/uL (4.7-6.1); WHITE BLOOD COUNT 7.03 K/uL (4.8-10.8)
[2017-01-16 07:43] VITALS: BP 149/81; PULSE 68; TEMP 36.9; O2SAT 93
[2017-01-16] MEDS ORDERED: CIPR1TAB10 PO ×2 (07:45→07:49)
[2017-01-16] MEDS ORDERED: DOCU-94 PO ×2 (07:45→07:49)
--- NOTE | 2017-01-16 07:47 | Progress Note ---
Subjective Date of Service: Jan 16, 2017. Subjective Pt evaluation today including: conversation w/ patient, chart review, lab review Voiding: weinstein catheter in place (patent, draining clear, yellow urine with some old clot) 66 yo male s/p cystolithopaxy and barbataged right renal pelvis. Pt developed UR after the procedure with PVR >500ml. Weinstein catheter placed. Gross hematuria noted on placement, but weinstein now draining clear, yellow urine with some old clot. The pt presented as an inpatient with difficulty voiding as well. He normally takes Flomax at home, but has not had this medication while inpatient. Pt denies pain, and doing well otherwise. Problem List Medical Problems: (1) Renal mass Status: Acute Review of Systems Constitutional: No fever, No chills Respiratory: No shortness of breath Cardiac: No chest pain Abdomen: No pain, No nausea, No vomiting Male : + hematuria, No dysuria Heme: No abnormal bleeding/bruising Objective Vital Signs Date Time Temp Pulse Resp B/P (MAP) Pulse Ox O2 Delivery O2 Flow Rate FiO2 01/16/17 04:05 36.5 74 16 121/73 (89) 94 Room Air 01/15/17 23:30 Room Air 01/15/17 23:03 36.9 68 16 118/67 (84) 95 Room Air 01/15/17 20:00 Room Air 01/15/17 19:07 36.5 68 18 116/74 (88) 95 Room Air 01/15/17 15:43 36.7 64 18 147/69 (95) 94 Room Air 01/15/17 14:37 67 16 166/90 (115) 97 Room Air 01/15/17 13:38 70 16 165/81 (109) 96 Room Air 01/15/17 13:12 70 16 165/93 (117) 96 Room Air 01/15/17 12:40 36.4 68 16 166/77 (106) 97 Room Air 01/15/17 12:40 97 Room Air 01/15/17 12:21 132/85 01/15/17 12:19 76 17 01/15/17 12:19 79 17 93 01/15/17 12:16 129/80 01/15/17 12:15 36.7 01/15/17 12:14 79 17 01/15/17 12:14 79 17 94 01/15/17 12:13 68 15 96 01/15/17 12:13 68 15 01/15/17 12:11 128/76 01/15/17 12:08 68 19 95 01/15/17 12:08 69 19 01/15/17 12:06 143/83 01/15/17 12:03 69 12 01/15/17 12:03 69 12 95 01/15/17 12:02 86 15 01/15/17 12:02 87 15 96 01/15/17 12:01 142/72 01/15/17 11:57 64 15 01/15/17 11:57 65 15 99 01/15/17 11:56 127/73 01/15/17 11:52 83 16 01/15/17 11:52 85 16 98 01/15/17 11:51 137/78 01/15/17 11:47 71 18 98 01/15/17 11:47 72 18 01/15/17 11:46 128/83 01/15/17 11:42 75 21 01/15/17 11:42 75 21 99 01/15/17 11:41 142/91 01/15/17 11:38 131/80 01/15/17 11:37 36.4 83 12 131/80 98 Oxymask 10 01/15/17 11:37 87 16 97 01/15/17 11:37 83 16 01/15/17 10:13 Room Air Physical Exam General Appearance: no apparent distress Eyes: normal inspection ENT: hearing grossly normal Neck: no JVD Respiratory/Chest: no respiratory distress, no accessory muscle use Cardiovascular: no JVD Extremities: normal inspection Neurologic/Psychiatric: alert, normal mood/affect, oriented x 3 Skin: normal color Laboratory Results Last 24 Hours Test 01/15/17 09:05 01/16/17 07:09 Sodium Level 141 mmol/L Potassium Level 4.0 mmol/L Chloride Level 109 mmol/L Carbon Dioxide Level 24 mmol/L Anion Gap 7.0 mmol/L Blood Urea Nitrogen 12 mg/dl Creatinine 1.00 mg/dl Est Creatinine Clear Calc Drug Dose 71.7 ml/min Estimated GFR () 89.9 Estimated GFR (Non- 77.5 BUN/Creatinine Ratio 12.1 Random Glucose 113 mg/dl Calcium Level 9.6 mg/dl Assessment and Plan A/P: Right renal mass, gross hematuria, bladder calculi; POD #1 s/p cystolithopaxy, right retrograde, and barbataged right kidney; post-op urinary retention AFVSS. Pt with post-op urinary retention. Will restart his Flomax, and plan to leave weinstein catheter in place for 3-6 days. Will plan for a TOV as an outpatient. Pt OK for d/c home when OK with primary service. Recommend d/c home with Colace and 3 days of Cipro. Scripts placed on chart. Pt scheduled for post-op f/u with Dr. Moise on 01-29-[address] [facility] stay due to: other (OR planned)
--- NOTE | 2017-01-16 08:05 | Anesthesiology Progress Note ---
Anesthesia Post Op Note Date & Time Jan 16, 2017 at 08:05 Vital Signs Pain Intensity: 0.0 Vital Signs Past 12 Hours Date Time Temp Pulse Resp B/P (MAP) Pulse Ox O2 Delivery O2 Flow Rate FiO2 01/16/17 07:43 36.9 68 16 149/81 (103) 93 Room Air 01/16/17 07:40 Room Air 01/16/17 04:05 36.5 74 16 121/73 (89) 94 Room Air 01/15/17 23:30 Room Air 01/15/17 23:03 36.9 68 16 118/67 (84) 95 Room Air Notes Mental Status: alert / awake / arousable, participated in evaluation Pt Amnestic to Procedure: Yes Nausea / Vomiting: adequately controlled Pain: adequately controlled Airway Patency, RR, SpO2: stable & adequate BP & HR: stable & adequate Hydration State: stable & adequate Anesthetic Complications: no major complications apparent
[2017-01-16] MEDS: VALSARTAN 80 MG TAB PO SCH (08:19)
[2017-01-16] MEDS: D5W AND 1/2NSS + 20MEQ KCL 1,000 ML IV SCH (08:20)
[2017-01-16 08:22] LABS: BUN/CREATININE RATIO 13.6 (10-20); CALCIUM 8.5 mg/dl (8.5-10.1); POTASSIUM 3.8 mmol/L (3.5-5.1)
[2017-01-16] MEDS ORDERED: TAMSULOSIN HCL 0.4 MG CAP PO ONE (08:30)
[2017-01-16 11:44] VITALS: BP 137/83; PULSE 71; TEMP 36.6; O2SAT 93
--- NOTE | 2017-01-16 13:36 | Discharge Instructions ---
Discharge Instructions Date of Service Jan 16, 2017. Admission Reason for Admission: Hematuria Discharge Discharge Diagnosis / Problem: Hematuria, urinary retention Discharge Goals Goal(s): Decrease discomfort, Diagnostic testing, Therapeutic intervention Activity Recommendations Activity Limitations: resume your previous activity . Instructions / Follow-Up Instructions / Follow-Up You were admitted to the hospital with nazia hematuria. A cystoscopy was performed to assess the blood in your urine, and this revealed bladder stones which were removed. Following the procedure, you developed urinary retention and pain, which was relieved with the placement of an indwelling Torres catheter. Urology will remove this catheter on 01/19 for a trial of voiding. They have provided you a prescription for an antibiotic to take for 3 days, as well as a stool softener. Medications: *Please take ciprofloxacin 500 mg by mouth twice a day x 3 days. This is the antibiotic. *Please take Colace 100 mg by mouth twice a day as needed for constipation. This is a stool softener. *Please stop your aspirin for now due to your bleeding until you follow up with urology on Sunday. *Continue your other home medications as prescribed. Follow up: *You have been scheduled to have your catheter removed on January 16 at 11:20 am. You will follow up again with Dr. Joiner on January 31 at 1:20 pm. *You are scheduled to follow up with your primary care provider, Dr. Santana, on SundayJanuary 13 at 1:00 pm. Please seek medical attention if you experience fevers, chills, sweats, dizziness/lightheadedness, loss of consciousness, chest pain, shortness of breath, nausea, vomiting, worsening bleeding, pain with urination, unable to urinate, numbness or tingling. Current Hospital Diet Patient's current hospital diet: Regular Diet Discharge Diet Recommended Diet: Regular Diet Procedures Procedures Performed: Cystoscopy, cystolithalopaxy, Right retrograde and barbataged right renal pelvis Pending Studies Studies pending at discharge: yes List of pending studies: Kidney biopsy and bladder stone pathology results Medical Emergencies . Who to Call and When: Medical Emergencies: If at any time you feel your situation is an emergency, please call 911 immediately. . Non-Emergent Contact Non-Emergency issues call your: Primary Care Provider, Urologist Call Non-Emergent contact if: you have a fever, you have any medication questions . Past History Medical & Surgical History: (1) Hematuria (2) Renal mass . "Provider Documentation" section prepared by Madison Pastor. . VTE Core Measure Inpt VTE Proph given/why not?: SCD's
--- NOTE | 2017-01-16 13:44 | Discharge Summary ---
Discharge Summary Date of Service Jan 16, 2017. (Madison Pastor, JAMES) Discharge Summary Admission Date: Jan 14, 2017 at 16:28 Discharge Date: Jan 16, 2017 Discharge Disposition: Home Principal Diagnosis: Hematuria, urinary retention, right renal mass Procedures: Operative Report Operative Date Jan 15, 2017. Pre-Operative Diagnosis Renal Mass; Bladder Stones Post-Operative Diagnosis Same Procedure(s) Performed Cystoscopy, cystolithalopaxy, Right retrograde and barbataged right renal pelvis Surgeon Jose Maria Stockroom Clerk Surgeon(s) none Estimated Blood Loss 0ml Findings Cystoscopic exam revealed a normal anterior urethra prostatic fossa was moderately obstructing per milliliter with an elevated median lobe bladder showed one plus trabeculation there was some adherent clot in the bladder and multiple small bladder stones there were no bladder tumors seen. Right retrograde showed a large mass distorting the collecting system Specimens a. barbataged right kidney b. bladder stones for stone analysis Drains none Anesthesia Gen. Disposition Recovery Room / PACU Indications Patient is a 76-year-old white male who was admitted through the emergency room with hematuria and bladder pain workup revealed an 8 cm right renal mass as well as multiple bladder stones. They were unable to pass a Torres on the floor. Patient is being brought down now for cystoscopy retrogrades barbotaged urine from the right kidney removal of bladder stones Description of Procedure After the induction of an adequate general anesthetic and appropriate timeout patient was placed in a dorsal lithotomy position. Lower abdomen and genitalia were prepped with Hibiclens and draped in a sterile fashion. Using a 22 Portuguese cystoscope routine cystoscopic exam was performed with the above-noted findings with the 30 and 70 lenses then a 0.03 guidewire was passed under fluoroscopic guidance up the right ureter and over this a 5 Portuguese open-ended catheter was passed up into the renal pelvis confirmed by fluoroscopy barbotage urine was obtained using normal saline. The catheter was then backed out and a right retrograde pyelogram was performed again with the above-noted findings. After completing this the catheter was removed the cystoscope was removed and a 24 Portuguese resection sheath and laser bridge were inserted most of the stones are small enough that I could irrigate them out there was one larger stone that had to be fragmented with the laser. Melinda evacuator was used to remove all bladder stone fragments. The laser scope was removed and the cystoscope was again passed bladder was inspected with the 30 and 70 lenses there were no stone fragments remaining and there was no bleeding. Bladder was then drained and cystoscope and sheath removed all needle sponges and instrument counts are correct at the end of the case. Patient tolerated the procedure well and taken to the recovery room in stable condition I attest to the content of the Intraoperative Record and any orders documented therein. Any exceptions are noted below. Consultations: Urology--Dr. Dela Cruz, Dr. Moise (Madison Pastor, [place]) Medication Reconciliation New Medications: Ciprofloxacin Hcl (Cipro) 500 Mg Tab 500 MG PO BID, #10 TAB Docusate Sodium (Colace) 100 Mg Cap 1 CAP PO BID PRN for Constipation for 15 Days, #30 CAP Continued Medications: Simvastatin (Zocor) 10 Mg Tab 10 MG PO QPM Tamsulosin Hcl (Flomax) 0.4 Mg Cap 0.4 MG PO after lunch Valsartan (Diovan) 160 Mg Tab 160 MG PO QAM Discontinued Medications: Aspirin (Aspirin Ec) 81 Mg Tab 81 MG PO QPM Discharge Exam Patient reports feeling much better. He denies any abdominal pain or back pain. He is passing gas and had a bowel movement earlier today. He does not appear to actively be having hematuria, although he does report some blood dripping from urethra itself. Torres is draining yellow urine. The patient denies fevers, chills, sweats, chest pain, palpitations, claudication, cough, wheezing, shortness of breath, nausea, vomiting, abdominal pain, dysuria, hematuria, urinary retention, paralysis, weakness, numbness and tingling. Review of Systems: Constitutional: No fever, No chills, No sweats Eyes: No worsening of vision, No eye pain, No diplopia ENT: No hearing loss, No sore throat, No trouble swallowing Respiratory: No cough, No wheezing, No shortness of breath Cardiovascular: No chest pain, No claudication, No palpitations Abdomen: No pain, No nausea, No vomiting Musculoskeletal: No joint pain, No muscle pain, No calf pain Genitourinary - Male: + problem reported (blood from urethra), No hematuria , No dysuria, No urinary retention Neurologic: No paralysis, No weakness, No numbness/tingling Integumentary: No rash, No itch, No color change Physical Exam: General Appearance: WD/WN, no apparent distress Eyes: normal inspection, PERRL, EOMI ENT: normal ENT inspection, hearing grossly normal, pharynx normal Neck: supple, no JVD, trachea midline Respiratory/Chest: lungs clear, normal breath sounds, no respiratory distress Cardiovascular: regular rate, rhythm, no gallop, no murmur Abdomen / GI: normal bowel sounds, non tender, soft, + pertinent finding ( Torres in place. [place] urine in bag but yellow urine in tubing. Blood from urethra.) Extremities: normal inspection, no calf tenderness, no pedal edema Neurologic/Psychiatric: alert, normal mood/affect, oriented x 3 (Madison Pastor ., PA-C) Hospital Course 66 y/o male who was admitted on 01/14 for gross hematuria. Gross hematuria/dysuria--improving -Admit to med/surg -UA neg for UTI, but with 3+ blood -Urine culture negative -CT A/P concerning for suspected malignant mass on right kidney -Renal biopsy pending -Taken for cystoscopy, cystolitholapaxy, right retrograde and barbataged right renal pelvis on 01/15. Bladder stones removed -Urology consulted, appreciate recs: Keep Torres in 3-6 days. TOV as outpatient. D/C with Colace and Cipro x 3 days. -Hgb stable at 13.8 -Pt w/urinary retention and bladder pressure post procedure. Bladder scan with 502 cc. Torrse inserted w/relief of pain -Continue Cipro 500 mg PO BID x 3 days per urology as outpt -Pt will f/u on 01/19 to remove Torres, then again on 01/31 regarding right renal mass HTN--stable -Continue valsartan 160 mg PO qd CAD -Hold ASA until follows up with urology BPH -Flomax 0.4 mg PO hs Hyperlipidemia -Continue Zocor 10 mg PO qd DVT prophylaxis -SCDs Code Status -Level I, FULL RESUSCITATION STATUS Total Time Spent: Greater than 30 minutes This includes examination of the patient, discharge planning, medication reconciliation, and communication with other providers. (Madison Pastor ., PA-C) I examined patient and discussed discharge planning with patient and APC. My exam did not differ from the exam that was performed in this discharge summary. I agree with above discharge summary. (Juan J Lawrence M.D.) Discharge Instructions Please refer to the electronic Patient Visit Report (Discharge Instructions) for additional information. (Madison Pastor ., PA-C) Additional Copies To Noemy Santana M.D.
[2017-01-16 14:07] VITALS: BP 137/83; PULSE 71; TEMP 36.6; O2SAT 93
[2017-01-16] MEDS ORDERED: TAMSULOSIN HCL 0.4 MG CAP PO SCH (21:00)
--- NOTE | 2017-01-17 13:29 | EDITING REQUIRED CODING QUERY ---
PATHOLOGY To promote full compliance with coding requirements relating to patient care, physician participation is requested in all cases of ecology professor uncertainty. Please assist us with the question(s) below: Please review the Pathology report and please document any relevant diagnosis(es) below. Thank you! JUAN C Gongora [facility] Diagnosis(es):
--- NOTE | 2017-01-23 05:57 | EDITING REQUIRED CODING QUERY ---
PATHOLOGY To promote full compliance with coding requirements relating to patient care, physician participation is requested in all cases of knapsack sprayer uncertainty. Please assist us with the question(s) below: Please review the Pathology report and please document any relevant diagnosis(es) below. Thank you! JUAN C Gongora [facility] Diagnosis(es):
== END 2017-01-16 15:10 | disposition home or self-care (01) | DRG 700 ==
LOC: C.EDB 11:21 → C.MSW 16:28 → ENRESERV 16:47
PROVIDERS: ADMIT Family Medicine; ATTEND Family Medicine
PROC: 0TCB8ZZ Extirpation of Matter from Bladder, Via Natural or Artificial Opening Endoscopic (ICD-10-PCS; principal; 2017-01-15 09:30)
PROC: 0T908ZX Drainage of Right Kidney, Via Natural or Artificial Opening Endoscopic, Diagnostic (ICD-10-PCS; principal; 2017-01-15 09:30)
DX: N28.89 Other specified disorders of kidney and ureter (principal); N21.0 Calculus in bladder; R31.0 Gross hematuria; R33.8 Other retention of urine; N35.9 Urethral stricture, unspecified; I10 Essential (primary) hypertension; N40.1 Benign prostatic hyperplasia with lower urinary tract symptoms; E78.5 Hyperlipidemia, unspecified; N32.89 Other specified disorders of bladder

== ENCOUNTER 2017-02-26 05:29 | Inpatient (IN) | payer OTHER, BC ==
[2017-02-15 10:34] VITALS: BMI 28.0
--- NOTE | 2017-02-15 11:08 | PAT Medication Instructions ---
Service Date Feb 15, 2017. Current Home Medication List Simvastatin (Zocor), 10 MG PO QPM Tamsulosin Hcl (Flomax), 0.4 MG PO after lunch Valsartan (Diovan), 160 MG PO QAM Medication Instructions For Your Scheduled Surgery - Hold the following medications the morning of surgery: Tamsulosin Hcl (Flomax), 0.4 MG PO after lunch Valsartan (Diovan), 160 MG PO QAM - Take the following medications as scheduled the night before surgery: Simvastatin (Zocor), 10 MG PO QPM If you have any questions please call us at [phone] or [phone] or [phone]
[2017-02-15 11:11] LABS: BASO % 0.4 %; BASO ABS # 0.02 K/uL (0-0.2); COMPLETE YES; EOS % 4.2 %; HEMATOCRIT 41.5 % (42-52); IG% 0.2 %; LYMPH % 34.7 %; LYMPH ABS # 1.74 K/uL (1.2-3.4); MEAN CELL VOLUME 88.9 fL (80-100); MEAN CORPUSCULAR HEMOGLOBIN 29.1 pg (25-34); MEAN CORPUSCULAR HGB CONC 32.8 g/dl (32-36); MEAN PLATELET VOLUME 10.2 fL (7.4-10.4); MONO % 10.2 %; NEUT % 50.3 %; PLATELET COUNT 180 K/uL (130-400); RED BLOOD COUNT 4.67 M/uL (4.7-6.1); WHITE BLOOD COUNT 5.02 K/uL (4.8-10.8)
[2017-02-15 11:16] LABS: URINE APPEARANCE CLEAR (CLEAR); URINE BILIRUBIN NEG (NEG); URINE COLOR YELLOW; URINE NITRITE NEG (NEG); URINE PH 5.5 (4.5-7.5); URINE SPECIFIC GRAVITY 1.011 (1.000-1.030); UROBILINOGEN NEG (NEG)
[2017-02-15 11:41] LABS: MANUAL MICROSCOPIC REQUIRED? NO; REVIEW REQ? NO
[2017-02-15 12:58] LABS: CALCIUM 8.7 mg/dl (8.5-10.1); CREATININE 0.92 mg/dl (0.60-1.40)
[~2017-02-26] VITALS: Ht 167.6 cm; Wt 77.6 kg
[2017-02-26] VITALS (8 sets, daily range): BP systolic 112–146; BP diastolic 68–78; PULSE 59–89; TEMP 36.4–36.6; O2SAT 91–99; Ht 167.6 cm; Wt 77.6 kg
[~2017-02-26 05:29] MED LIST changes: -ASPI81TA28 PO
[2017-02-26] MEDS ORDERED: LACTATED RINGER'S 1000ML 1,000 ML IV SCH (06:00)
[2017-02-26] MEDS ORDERED: CEFAZOLIN 3000MG IV PUSH 15 ML IV SCH (06:00)
[2017-02-26] MEDS ORDERED: FENTANYL CITRATE INJ 50 MCG/1 ML 2 ML VIAL ONE (06:33)
[2017-02-26] MEDS ORDERED: PROPOFOL IV EMULSION 10 MG/ML 20 ML VIAL IV ONE (06:33)
[2017-02-26] MEDS ORDERED: LIDOCAINE HCL 2% 2 ML VIAL (20MG/ML) ONE (06:33)
[2017-02-26] MEDS ORDERED: ONDANSETRON INJ 2 MG/ML 2 ML VIAL ONE (06:33)
[2017-02-26] MEDS ORDERED: DEXAMETHASONE SOD INJ 4 MG/ML VIAL ONE (06:33)
[2017-02-26] MEDS ORDERED: ROCURONIUM BROMIDE 10 MG/ML 5 ML VIAL IV ONE (06:34)
[2017-02-26] MEDS ORDERED: MIDAZOLAM HCL 1 MG/ML 2ML VIAL ONE (06:34)
[2017-02-26] MEDS ORDERED: MANNITOL 25% 50 ML VIAL ONE (06:45)
[2017-02-26] MEDS ORDERED: BUPIVACAINE 0.5 % 5 MG/1 ML MPF 30ML VIAL ONE (07:05)
--- NOTE | 2017-02-26 07:08 | History & Physical Bridge Note ---
H&P Re-Evaluation Bridge Note: I have examined the patient, reviewed the History & Physical and in the interval since the performance of the History & Physical I have noted the following changes of clinical significance: Right Hand Assist Laparoscopic Radical Nephrectomy No changes noted
[2017-02-26] MEDS ORDERED: EpHEDrine SULFATE INJ 50 MG/ML AMP IV PRN (07:15)
[2017-02-26] MEDS ORDERED: ATROPINE SULFATE 0.1 MG/ML 5ML SYR IV PRN (07:15)
[2017-02-26] MEDS ORDERED: ONDANSETRON INJ 2 MG/ML 2 ML VIAL IV PRN (07:15)
[2017-02-26] MEDS ORDERED: HYDROmorphone INJ 2 MG/ML SYR/VIAL ONE (07:59)
[2017-02-26] MEDS ORDERED: GLYCOPYRROLATE INJ 0.2 MG/ML VIAL ONE (09:23)
[2017-02-26] MEDS ORDERED: NEOSTIGMINE METHYLSULFATE 5 MG/5 ML SYR ONE (09:23)
[2017-02-26] MEDS ORDERED: TISSEEL FIBRIN SEALANT 10ML TOP ONE (09:25)
[2017-02-26] MEDS: FENTANYL CITRATE INJ 50 MCG/1 ML 2 ML VIAL IV PRN ×4 (10:15→10:30)
[2017-02-26] MEDS: HYDROmorphone INJ 1 MG/ML SYR IV PRN ×2 (10:34→10:39)
[2017-02-26 10:45] LABS: HEMATOCRIT 40.9 % (42-52); MEAN CELL VOLUME 88.1 fL (80-100); MEAN CORPUSCULAR HEMOGLOBIN 29.3 pg (25-34); MEAN PLATELET VOLUME 9.8 fL (7.4-10.4); PLATELET COUNT 196 K/uL (130-400); RED BLOOD COUNT 4.64 M/uL (4.7-6.1); WHITE BLOOD COUNT 14.43 K/uL (4.8-10.8)
[2017-02-26 10:51] LABS: MEAN CORPUSCULAR HGB CONC 33.3 g/dl (32-36)
--- NOTE | 2017-02-26 10:53 | [facility] Post Operative Brief Note ---
Immediate Operative Summary Operative Date Feb 26, 2017. Pre-Operative Diagnosis Right renal mass Post-Operative Diagnosis Right renal mass Procedure(s) Performed Right Laparoscopic Hand Assisted Nephrectomy Surgeon Dr. Joiner Crawler Dragline Operator Surgeon(s) Danay Romero Estimated Blood Loss 50 ML Findings Large centrally located Right renal mass Fluids (cc crystalloids) See Anes Report Specimens A: Right kidney Drains None Anesthesia General Complication(s) None Disposition Recovery Room / PACU
--- NOTE | 2017-02-26 11:02 | Anesthesiology Progress Note ---
Anesthesia Post Op Note Date & Time Feb 26, 2017 at 11:02 Vital Signs Pain Intensity: 4 Vital Signs Past 12 Hours Date Time Temp Pulse Resp B/P (MAP) Pulse Ox O2 Delivery O2 Flow Rate FiO2 02/26/17 10:55 36.2 68 14 112/71 95 Nasal Cannula 4 02/26/17 10:45 90 14 128/83 95 Nasal Cannula 4 02/26/17 10:35 75 14 125/71 94 Nasal Cannula 4 02/26/17 10:25 14 130/77 98 Oxymask 10 02/26/17 10:15 77 14 153/76 100 Oxymask 10 02/26/17 10:07 36.7 87 14 145/94 99 Oxymask 10 02/26/17 05:53 36.6 89 16 146/78 99 Room Air Notes Mental Status: alert / awake / arousable, participated in evaluation Pt Amnestic to Procedure: Yes Nausea / Vomiting: adequately controlled Pain: adequately controlled Airway Patency, RR, SpO2: stable & adequate BP & HR: stable & adequate Hydration State: stable & adequate Anesthetic Complications: no major complications apparent
[2017-02-26 11:21] LABS: BUN/CREATININE RATIO 16.1 (10-20); CALCIUM 8.5 mg/dl (8.5-10.1); CREATININE 1.2 mg/dl (0.60-1.40)
[2017-02-26] MEDS: MoRPHine SULFATE 2 MG/ML CARP IV PRN ×3 (12:11→19:36)
[2017-02-26] MEDS: D5W AND 1/2NSS + 20MEQ KCL 1,000 ML IV SCH ×2 (12:28→22:25)
--- NOTE | 2017-02-26 12:49 | [facility] Operative Report ---
Operative Report Operative Date Feb 26, 2017. Pre-Operative Diagnosis Right renal mass Post-Operative Diagnosis Right renal mass Procedure(s) Performed Right Laparoscopic Hand Assisted Nephrectomy Surgeon Dr. Joiner Mva Reactor Operator Surgeon(s) Danay Romero Estimated Blood Loss 50 ML Findings Large Right centrally located renal mass. Fluids See Anes Report Specimens A: Right kidney Drains None Anesthesia General Complication(s) None Disposition Recovery Room / PACU Indications Patient found to have suspicious, large, centrally located mid to lower pole mass of the right kidney. Risks and benefits were discussed at length. Patient elected nephrectomy. Description of Procedure Patient was consented and brought back to the operating room. Patient was placed under anesthesia in the supine position. The patient was then transferred into the lateral position with the right flank superior. Appropriate support, arm rest, padding, and anchors were placed to position the patient for the procedure. The table was flexed to assess patient positioning. With adequate padding and support including an axillary roll padding, the patient was positioned to proper height. Patient was prepped and draped in the regular sterile fashion. A time out was completed. With timeout completed, the patient was marked at the inferior edge of the ribs , the ASIS, the inguinal ligament, and the umbilicus. A marking was made approx 3 cm above the inguinal ligament and approx 3 cm medial to the ASIS to facilitate a Modified Rock Incision. Local anesthetic was placed and a 7cm incision was made into the skin. Electrobovie cautery was utilized to open subcutaneous tissues and fat down to the external rectus fascia. The fascia was opened and the muscles split. The internal oblique fascia was then opened and the muscles split. The final transversalis fascia was opened and the peritoneum exposed. The peritoneum was then opened with Metzenbaum suture, and the peritoneal cavity accessed. The hand assist port was placed and the camera was entered. No areas of injury or bleeding. The abdominal wall was visualized and two 10 mm ports were placed at the edge of the rectus approx 2 cm above the umbilicus and a second placed approx 10 cm above the first port. The cavity was insufflated with CO2 through the inferior port. The skin was anesthetized and an incision made with a scalpel. Blunt spreading trocars were utilized and the ports placed. A camera was then placed into the superior port and the hand assist gel port entered. The area was assessed. The right colon was released and retracted medially exposing the retroperitoneum. This was carried and dissected utilizing a harmonic device and blunt dissection. With the colon reflected, the iliac vessels were palpated and blunt dissection taken superior to the vessels. The gondal vein and ureter were visualized and dissection was taken up to the hilum following the course of the ureter. The duodenum was identified and retracted with blunt dissection. The hilum was exposed and the vein visualized. By palpation the renal vein and artery were isolated. A 45 stapling device was selected and 2 staple loads were utilized to staple ligate and cut the renal vessels. The area was inspected and no bleeding or injury to surrounding tissues were observed. Dissection then continued cranially up to the upper pole region of the kidney surrounded by Gerota's fascia. The lateral attachments to the lateral wall were dissected with the harmonic and bluntly to release the kidney. The kidney was then dissected at the superior edge of Gerota's to dissect the kidney from the region of the adrenal. An additional staple load was utilized to dissect superior attachements. The kidney was then dissected completely in the superior and posterior attachments and freed completely. The stapling device was then utilized to ligate and cut the tissue inferior to the kidney and fully expose the right ureter. The ureter was clipped and cut. The kidney was then grasped and removed from the body via the hand assist gel port. The kidney, removed, the insufflation was reattached and the entire bed examined. Fibrin sealant was then placed at the kidney bed and hilum. No bleeding or areas of concern were noted. No palpable lymph nodes or masses. Two 1/3 pieces of Surgicel cellulose sheet were placed. The entire area inspected, the ports were removed. At the site of the hand port, the peritoneum was reapproximated with a 0 vicryl suture. The fascial layers were closed individually. The Transversalis and Interal Oblique layers were closed with a running 0 vicryl suture. The external oblique fascia was closed with a running 0 PDS suture. The subcutaneous tissues were closed with a running 0 vicryl suture. The skin was closed with a running monocryl 4-0 suture. No drain was placed. A 0 vicryl was used to close the 10 mm port fascial layer and a running 4-0 Monocryl was used at the skin. Surgical glue was placed on the wounds and the patient was cleaned. The patient was repositioned into the supine position and further cleaned. They were aroused from anesthesia, and transferred to the pacu in stable condition having tolerated the procedure well with no complications. I was present and participated in all aspects of the procedure. Dr. David Marcial was present to assist with port placement, anatomic dissection, utilization of surgical devices, removal of kidney, and closure of fascia and skin. Danay Alvarado NP, was present and participated in port placement, camera movement and control, fascial closure, and skin closure. The patient will be monitored in the PACU until transferred to the floor to be monitored. I attest to the content of the Intraoperative Record and any orders documented therein. Any exceptions are noted below.
[2017-02-26] MEDS ORDERED: NURSING VERBAL MED ORDER ONE ×2 (13:00→21:30)
[2017-02-26] MEDS ORDERED: PNEUMOCOCCAL POLYSACCHARIDES 25 MCG/0.5 ML VIAL/SYR IM. ONE (16:00)
[2017-02-26] MEDS ORDERED: PNEUMOCOCCAL ADMINISTRATION CHARGE ONE (16:00)
[2017-02-26] MEDS: SIMVASTATIN 10 MG TAB PO SCH (21:07)
[2017-02-26] MEDS: TAMSULOSIN HCL 0.4 MG CAP PO SCH (21:07)
[2017-02-26] MEDS: DOCUSATE SODIUM 100 MG CAP PO SCH (21:07)
[2017-02-26] MEDS: OXYCODONE/ACETAMINOPHEN 5-325 TAB PO PRN (21:07)
[2017-02-27 00:25] VITALS: BP 128/69; PULSE 75; TEMP 36.9; O2SAT 94
[2017-02-27] MEDS: OXYCODONE/ACETAMINOPHEN 5-325 TAB PO PRN ×4 (03:06→23:22)
[2017-02-27] MEDS ORDERED: NURSING VERBAL MED ORDER ONE ×2 (03:30→15:30)
[2017-02-27] MEDS ORDERED: ONDANSETRON INJ 2 MG/ML 2 ML VIAL ONE (03:38)
[2017-02-27] MEDS: MoRPHine SULFATE 2 MG/ML CARP IV PRN ×3 (03:57→18:24)
[2017-02-27 05:10] VITALS: BP 143/72; PULSE 61; TEMP 36.5; O2SAT 98
[2017-02-27 05:55] LABS: BASO % 0.1 %; BASO ABS # 0.01 K/uL (0-0.2); COMPLETE YES; EOS % 0.1 %; HEMATOCRIT 35.8 % (42-52); IG% 0.2 %; LYMPH % 11.3 %; LYMPH ABS # 1.06 K/uL (1.2-3.4); MEAN CELL VOLUME 86.9 fL (80-100); MEAN CORPUSCULAR HEMOGLOBIN 29.6 pg (25-34); MEAN CORPUSCULAR HGB CONC 34.1 g/dl (32-36); MONO % 12.1 %; NEUT % 76.2 %; PLATELET COUNT 188 K/uL (130-400); RED BLOOD COUNT 4.12 M/uL (4.7-6.1); WHITE BLOOD COUNT 9.36 K/uL (4.8-10.8)
[2017-02-27 06:25] LABS: BUN/CREATININE RATIO 12.3 (10-20); CALCIUM 8.1 mg/dl (8.5-10.1); CREATININE 1.54 mg/dl (0.60-1.40); POTASSIUM 4.1 mmol/L (3.5-5.1)
--- NOTE | 2017-02-27 07:19 | Clinical Documentation Query ---
CLINICAL DOCUMENTATION QUERY In your clinical opinion is this patient being managed for: (X) Acute kidney failure in the setting of right nephrectomy and treated with IV hydration ( ) Not Agree ( ) Other explanation of clinical findings (Please Explain) ( ) Unable to determine (Please Define) (X) Need to Discuss Chronic kidney disease Stage 2-3 with brooks likely due to post operative recovery and radical nephrectomy. IV and Oral hydration and monitoring. The medical record reflects the following clinical findings, treatment, and risk factors. Clinical Indicators: Creatinine 1.20 trending up to 1.54, GFR 62.2 trending down to 46.0 Treatment: IV hydration, serial PRPs Risk Factors: S/P right nephrectomy Please clarify and document your clinical opinion in the progress notes and discharge summary. Terms such as "probable", "suspected", "likely", "questionable", "possible", or "still to be ruled out" are acceptable. IF IN AGREEMENT, YOU MUST DOCUMENT ABOVE DIAGNOSTIC STATEMENT IN DAILY PROGRESS NOTES AND DISCHARGE SUMMARY. This document is not part of the patient's record. Thank You, Sole Watkins RN [phone]
[2017-02-27 07:44] VITALS: BP 124/71; PULSE 64; TEMP 36.4; O2SAT 94
[2017-02-27] MEDS ORDERED: OXYC7.5T65 PO (07:49)
[2017-02-27] MEDS: DOCUSATE SODIUM 100 MG CAP PO SCH ×2 (07:49→20:41)
[2017-02-27] MEDS: D5W AND 1/2NSS + 20MEQ KCL 1,000 ML IV SCH ×2 (07:50→18:24)
[2017-02-27] MEDS: VALSARTAN 80 MG TAB PO SCH (07:50)
--- NOTE | 2017-02-27 07:50 | Anesthesiology Progress Note ---
Anesthesia Post Op Note Date & Time Feb 27, 2017 at 07:49 Vital Signs Vital Signs Past 12 Hours Date Time Temp Pulse Resp B/P (MAP) Pulse Ox O2 Delivery O2 Flow Rate FiO2 02/27/17 07:44 36.4 64 18 124/71 (88) 94 Room Air 02/27/17 05:10 36.5 61 17 143/72 (95) 98 Room Air 02/27/17 04:00 Room Air 02/27/17 00:25 36.9 75 18 128/69 (88) 94 Room Air 02/27/17 00:00 Room Air 02/26/17 20:08 36.6 75 18 125/69 (87) 94 Room Air 02/26/17 20:00 93 Room Air Notes Mental Status: alert / awake / arousable, participated in evaluation Pt Amnestic to Procedure: Yes Nausea / Vomiting: adequately controlled Pain: adequately controlled Airway Patency, RR, SpO2: stable & adequate BP & HR: stable & adequate Hydration State: stable & adequate Anesthetic Complications: no major complications apparent
[2017-02-27] MEDS ORDERED: DOCU-94 PO (07:51)
--- NOTE | 2017-02-27 07:51 | Discharge Instructions ---
Discharge Instructions Date of Service Feb 27, 2017. Admission Reason for Admission: Renal Mass Discharge Discharge Diagnosis / Problem: Renal Mass s/p Hand Assit Nephrectomy Discharge Goals Goal(s): Decrease discomfort, Improve function Activity Recommendations Activity Limitations: resume your previous activity Lifting Limitations: no more than 10 pounds, no more than 25 pounds, gradually increase as tolerated, until after follow-up appointment Exercise/Sports Limitations: rest today, gradually increase as tolerated Shower/Bathe: no limitations . Instructions / Follow-Up Instructions / Follow-Up No heavy lifting or over activity. Monitor out put and call if any issues urinating. Utilize stool softners while on narcotic pain medication. Okay to shower. Wash 2-3 x daily with warm soapy water. No hot tubs or baths. No scrubbing. Call if any fevers or chills or other issues. Current Hospital Diet Patient's current hospital diet: Full Liquid Diet Discharge Diet Recommended Diet: Regular Diet Procedures Procedures Performed: Right Laparoscopic Hand Assisted Nephrectomy Pending Studies Studies pending at discharge: no Medical Emergencies . Who to Call and When: Medical Emergencies: If at any time you feel your situation is an emergency, please call 911 immediately. . Non-Emergent Contact Non-Emergency issues call your: Primary Care Provider, Urologist Call Non-Emergent contact if: you have a fever, temperature is above 101, temperature is above 101.5, your pain is not controlled, your pain is worsening , your pain is unusual for you, wound has increased drainage, wound has increased redness, wound has increased pain, you have any medication questions . . "Provider Documentation" section prepared by Jalen Joiner,. . VTE Core Measure Inpt VTE Proph given/why not?: Carmen Ennis, SCD's
[2017-02-27] MEDS: ONDANSETRON INJ 2 MG/ML 2 ML VIAL IV PRN ×2 (10:06→20:39)
--- NOTE | 2017-02-27 11:28 | Progress Note ---
Subjective Date of Service: Feb 27, 2017. Subjective Pt evaluation today including: conversation w/ patient, physical exam, chart review, lab review, review of inpatient medication list Pain: Sore, but controlled with medication PO Intake: Oral. Tolerating well Voiding: weinstein catheter in place OOB and amb with assistence. Tolerating PO intake. No bowel movement. Weinstein in place draining clear yellow urine without issues. No chest pain or SOB. Pain in abd radiating to groin/back. mild and sore and in waves and controlled with medication. Problem List Medical Problems: (1) Renal mass Status: Acute Review of Systems All Other Systems: Reviewed and Negative (Reviewed. All pert Pos and Negs in HPI) Medications Reviewed. Objective Vital Signs Date Time Temp Pulse Resp B/P (MAP) Pulse Ox O2 Delivery O2 Flow Rate FiO2 02/27/17 08:00 Room Air 02/27/17 07:44 36.4 64 18 124/71 (88) 94 Room Air 02/27/17 05:10 36.5 61 17 143/72 (95) 98 Room Air 02/27/17 04:00 Room Air 02/27/17 00:25 36.9 75 18 128/69 (88) 94 Room Air 02/27/17 00:00 Room Air 02/26/17 20:08 36.6 75 18 125/69 (87) 94 Room Air 02/26/17 20:00 93 Room Air 02/26/17 16:00 93 Room Air 02/26/17 15:09 73 16 132/76 (94) 95 Room Air 02/26/17 12:35 Room Air 02/26/17 12:26 36.5 81 16 112/68 (83) 95 Room Air 02/26/17 11:48 36.4 69 18 132/77 (95) 96 2.0 Physical Exam General Appearance: WD/WN, no apparent distress Eyes: normal inspection, EOMI ENT: normal ENT inspection Neck: supple, no adenopathy, no JVD Respiratory/Chest: chest non-tender, no respiratory distress, no accessory muscle use Cardiovascular: regular rate, rhythm Abdomen: soft, + distended Extremities: normal range of motion, non-tender, no calf tenderness Neurologic/Psychiatric: tip out worker II-XII nml as tested, no motor/sensory deficits, alert, normal mood/affect, oriented x 3 Skin: normal color, warm/dry, no rash Lymphatic: no adenopathy Comments: Weinstein in place with clear yellow urine. Abd mild tender x 4. Wound: Clean, Covered. Laboratory Results Last 24 Hours Test 02/27/17 05:21 White Blood Count 9.36 K/uL Red Blood Count 4.12 M/uL Hemoglobin 12.2 g/dL Hematocrit 35.8 % Mean Corpuscular Volume 86.9 fL Mean Corpuscular Hemoglobin 29.6 pg Mean Corpuscular Hemoglobin Concent 34.1 g/dl Platelet Count 188 K/uL Mean Platelet Volume 10.0 fL Neutrophils (%) (Auto) 76.2 % Lymphocytes (%) (Auto) 11.3 % Monocytes (%) (Auto) 12.1 % Eosinophils (%) (Auto) 0.1 % Basophils (%) (Auto) 0.1 % Neutrophils # (Auto) 7.13 K/uL Lymphocytes # (Auto) 1.06 K/uL Monocytes # (Auto) 1.13 K/uL Eosinophils # (Auto) 0.01 K/uL Basophils # (Auto) 0.01 K/uL RDW Standard Deviation 42.1 fL RDW Coefficient of Variation 13.2 % Immature Granulocyte % (Auto) 0.2 % Immature Granulocyte # (Auto) 0.02 K/uL Sodium Level 137 mmol/L Potassium Level 4.1 mmol/L Chloride Level 104 mmol/L Carbon Dioxide Level 26 mmol/L Anion Gap 7.0 mmol/L Blood Urea Nitrogen 19 mg/dl Creatinine 1.54 mg/dl Est Creatinine Clear Calc Drug Dose 46.3 ml/min Estimated GFR () 53.3 Estimated GFR (Non- 46.0 BUN/Creatinine Ratio 12.3 Random Glucose 133 mg/dl Calcium Level 8.1 mg/dl Assessment and Plan POD 1 s.p Hand Ass Lap Rad Right Nephrectomy. BRETT on CKD Continue supportive care and monitoring. Slowly increase activity and diet. Weinstein removed today. COntinue fluids for BRETT. Dc heart monitoring. Pain control as ordered. Will follow and likely observe until next am. Will follow.
[2017-02-27 11:58] VITALS: BP 124/77; PULSE 59; TEMP 36.9; O2SAT 95
[2017-02-27] MEDS: TAMSULOSIN HCL 0.4 MG CAP PO SCH (15:21)
[2017-02-27 15:36] VITALS: BP 135/79; PULSE 62; TEMP 36.4; O2SAT 93
[2017-02-27] MEDS ORDERED: LIDOCAINE HCL 2% JELLY 30 ML TUBE EXT ONE (18:14)
[2017-02-27] MEDS: SIMVASTATIN 10 MG TAB PO SCH (20:41)
[2017-02-27 23:38] VITALS: BP 157/85; PULSE 76; TEMP 37.2; O2SAT 93
[2017-02-28] MEDS: MoRPHine SULFATE 2 MG/ML CARP IV PRN (00:10)
[2017-02-28] MEDS: D5W AND 1/2NSS + 20MEQ KCL 1,000 ML IV SCH (04:20)
[2017-02-28 06:12] LABS: BASO % 0.1 %; BASO ABS # 0.01 K/uL (0-0.2); COMPLETE YES; EOS % 1.5 %; HEMATOCRIT 37.2 % (42-52); IG% 0.3 %; LYMPH % 13.5 %; LYMPH ABS # 1.01 K/uL (1.2-3.4); MEAN CELL VOLUME 87.3 fL (80-100); MEAN CORPUSCULAR HEMOGLOBIN 29.3 pg (25-34); MEAN CORPUSCULAR HGB CONC 33.6 g/dl (32-36); MEAN PLATELET VOLUME 10.1 fL (7.4-10.4); MONO % 13.9 %; NEUT % 70.7 %; PLATELET COUNT 177 K/uL (130-400); RED BLOOD COUNT 4.26 M/uL (4.7-6.1); WHITE BLOOD COUNT 7.46 K/uL (4.8-10.8)
[2017-02-28 06:50] LABS: BUN/CREATININE RATIO 7.7 (10-20); CALCIUM 8.3 mg/dl (8.5-10.1); CREATININE 1.53 mg/dl (0.60-1.40); POTASSIUM 4.3 mmol/L (3.5-5.1)
[2017-02-28] MEDS: OXYCODONE/ACETAMINOPHEN 5-325 TAB PO PRN (06:56)
[2017-02-28 07:59] VITALS: BP 153/83; PULSE 79; TEMP 36.5; O2SAT 92
[2017-02-28] MEDS: VALSARTAN 80 MG TAB PO SCH (08:00)
[2017-02-28] MEDS: DOCUSATE SODIUM 100 MG CAP PO SCH (08:00)
--- NOTE | 2017-02-28 09:06 | Discharge Summary ---
Discharge Summary Date of Service Feb 28, 2017. Discharge Summary Admission Date: Feb 26, 2017 at 07:10 Discharge Date: Feb 28, 2017 Discharge Disposition: Home Principal Diagnosis: Renal Mass Secondary Diagnoses/Problems: BRETT on CKD Urinary Retention Procedures: RIght Hand Asst Radical Nephrectomy Pending Studies/Follow-Up: None. Post operative follow up scheduled in next week Admission Information HPI (per Admitting provider): Patient presented to office with large right renal mass and hematuria. History of acute urinary retention. Discussed risks and benefits and patient elected to undergo radical nephrectomy. No pain or discomfort. Moderate LUTS on dual therapy. Physical Exam (per Admitting): General Appearance: WD/WN, no apparent distress Head: normocephalic, atraumatic Eyes: normal inspection, EOMI ENT: normal ENT inspection Neck: supple, no JVD Respiratory/Chest: chest non-tender, no respiratory distress, no accessory muscle use Cardiovascular: regular rate, rhythm, no edema Abdomen/GI: non tender, soft, + distended Genitourinary - Male: normal male genitalia (Weinstein in place) Back: normal inspection, no CVA tenderness, no muscle spasm, normal range of motion Extremities/Musculoskelatal: normal inspection, no calf tenderness, normal range of motion 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 Postoperatively the patient was monitored and transferred to the floor for monitoring. Post operative labs were monitored and the patient placed on hydration. Was started on liquids post op day 1 and weinstein was removed. Patient was ambulating and oob to chair with assistence. Pain was controlled and patient had some belching. Unable to void with high residual late on POD 1. Weinstein was replaced. POD 2 patient's pain was controlled and diet increased. Increased activity and ambulation. No bowel movement and tolerating weinstein without issues. With improved clinical picture and plans for follow up and instructions for home , patient was ready for discharge. (2) Hematuria See above. Total time spent on discharge = 15 m This includes examination of the patient, discharge planning, medication reconciliation, and communication with other providers. Discharge Instructions See Discharge instruction sheet. Weinstein catheter care instructions also given per nursing protocol. Home with weinstein in place.
[2017-02-28 09:09] VITALS: BP 153/83; PULSE 79; TEMP 36.5; O2SAT 92
[2017-02-28] MEDS ORDERED: TAMSULOSIN HCL 0.4 MG CAP PO SCH (12:00)
--- NOTE | 2017-03-02 11:10 | EDITING REQUIRED CODING QUERY ---
CODING QUERY To promote full compliance with coding requirements relating to patient care, provider participation is requested in all cases of professional model uncertainty. Please assist us with the question(s) below: Coding Question(s): There is documentation of right renal mass and a right nephrectomy was done. The pathology report is now available. Please clarify below, in your clinical opinion, regarding the right renal mass. 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 ( ) The right renal mass is of unspecified etiology ( ) The right renal mass is of other etiology: Specify Physician's Response(s): Thank you Mary Can Principal Diagnosis: "_that condition established after study, to be chiefly responsible for occasioning the admission of the patient to the hospital for care." Co-Existing Principal Diagnosis: "_when two or more diagnoses equally meet the criteria for principal diagnosis as determined by the circumstances of admission, diagnostic work up, and/or therapy provided, and the Alphabetic Index, Tabular List, or another coding guideline does not provide sequencing direction, any one of the diagnoses may be sequenced first." "When the physician has documented what appears to be a current diagnosis in the body of the record, but has not included the diagnosis in the final diagnostic statement, the physician should be asked whether the diagnosis should be added." (Source [facility]oding [facility] 2 QTR90. p3-4)
== END 2017-02-28 10:27 | disposition home or self-care (01) | DRG 657 ==
LOC: C.ACU 05:29 → C.MED 07:10 → ENRESERV 10:52
PROVIDERS: ADMIT Urology; ATTEND Urology
PROC: 0TT00ZZ Resection of Right Kidney, Open Approach (ICD-10-PCS; principal; 2017-02-26 07:15)
DX: C64.1 Malignant neoplasm of right kidney, except renal pelvis (principal); N17.9 Acute kidney failure, unspecified; R33.9 Retention of urine, unspecified; N40.0 Benign prostatic hyperplasia without lower urinary tract symptoms; E78.00 Pure hypercholesterolemia, unspecified; I10 Essential (primary) hypertension; Z79.899 Other long term (current) drug therapy; Z83.3 Family history of diabetes mellitus; Z82.49 Family history of ischemic heart disease and other diseases of the circulatory system; Z82.79 Family history of other congenital malformations, deformations and chromosomal abnormalities; Z80.41 Family history of malignant neoplasm of ovary; Z80.49 Family history of malignant neoplasm of other genital organs; Z80.42 Family history of malignant neoplasm of prostate

== ENCOUNTER → 2017-06-04 | Outpatient (CLI) | payer OTHER, BC ==
[~2017-06-04] MED LIST changes: +DOCU-94 PO; +OXYC7.5T65 PO
--- NOTE | 2017-06-04 12:08 | DIAGNOSTIC IMAGING REPORT ---
(CHEST) THORAX WITHOUT CLINICAL HISTORY: 67 years-old Male presenting with C64.1 Malignant neoplasm of right [id number]. TECHNIQUE: Multidetector CT imaging of the chest was performed without the use of intravenous contrast. IV contrast: None. A dose lowering technique was used consistent with the principles of ALARA (as low as reasonably achievable). COMPARISON: CT from 01/14/2017. CT DOSE (mGy.cm): The estimated cumulative dose is 974.28 mGycm. FINDINGS: [employer] Architect topogram: Unremarkable. On soft tissue windows, normal thyroid and thoracic inlet. No axillary, supraclavicular, or mediastinal lymphadenopathy. Calcified mediastinal lymph nodes noted likely indicating prior granulomatous infection. Evaluation of the samuel limited without intravenous contrast. Atherosclerosis of the aorta. Normal heart size. No pericardial or pleural effusion. Moderate hiatal hernia. Postsurgical changes of right nephrectomy. On lung windows, no focal infiltrate or nodule. Airways patent. On bone windows, no destructive osseous lesion. IMPRESSION: 1. No evidence of intrathoracic metastatic disease. No lymphadenopathy. Electronically signed by: Denver Robert M.D. 06/04/2017 12:06 PM Dictated Date/Time: 06/04/2017 11:59 AM
--- NOTE | 2017-06-04 12:23 | DIAGNOSTIC IMAGING REPORT ---
ABD/PELVIS ORAL CONT ONLY CLINICAL HISTORY: 67 years-old Male presenting with clear cell renal cell carcinoma. TECHNIQUE: Multidetector CT of the abdomen and pelvis was performed without the use of intravenous contrast. IV contrast: None. A dose lowering technique was used consistent with the principles of ALARA (as low as reasonably achievable). COMPARISON: 01/14/2017. CT DOSE (mGy.cm): The estimated cumulative dose is 974.28. FINDINGS: Machine Maintenance Mechanic topogram: Unremarkable. Lung bases: Lungs and pleural spaces clear. Normal heart size. No pericardial or pleural effusion. Liver: Normal morphology. Normal density. Biliary: No gross biliary ductal dilatation allowing for noncontrast technique. Normal gallbladder. Pancreas: Mild parenchymal atrophy. Spleen: Normal noncontrast appearance. Adrenal glands: The right adrenal gland appears to be preserved. Left adrenal gland normal. Kidneys and ureters: The patient is now status post right nephrectomy. No suspicious soft tissue or fluid collection operative bed. Normal noncontrast appearance of the left kidney. No hydronephrosis. Normal left ureter. The right ureter is intact along the mid to distal course. Bladder: Circumferential bladder wall thickening suggested likely indicating chronic outlet obstruction. Pelvic organs: Prostate enlargement likely secondary to benign prostatic hyperplasia. Bowel: Diverticulosis of the descending and proximal sigmoid colon. No pericolonic inflammatory change. The appendix is normal. No bowel obstruction. Moderate hiatal hernia. Peritoneal cavity: No free fluid or intraperitoneal gas. Lymph nodes: No gross lymphadenopathy allowing for noncontrast technique. Vasculature: Atherosclerosis of the normal caliber abdominal aorta. Postsurgical changes of the right renal vasculature. Abdominal wall: Postsurgical changes of prior bilateral inguinal hernia repairs. An old tract is likely present in the right mid abdomen anteriorly. Musculoskeletal: No destructive osseous lesion. IMPRESSION: 1. Postsurgical changes of right nephrectomy. Allowing for noncontrast technique, no lymphadenopathy or evidence of metastatic disease in abdomen or pelvis. 2. Diverticulosis. 3. Prostatomegaly with chronic bladder outlet obstruction. Electronically signed by: Denver Robert M.D. 06/04/2017 12:21 PM Dictated Date/Time: 06/04/2017 12:13 PM
== END | disposition home or self-care (01) ==
LOC: C.CTS 11:26
PROVIDERS: ATTEND Urology
DX: C64.1 Malignant neoplasm of right kidney, except renal pelvis (principal); Z90.5 Acquired absence of kidney; K57.90 Diverticulosis of intestine, part unspecified, without perforation or abscess without bleeding; N40.1 Benign prostatic hyperplasia with lower urinary tract symptoms